=== PATIENT | female | born 1965 | race American Indian/Alaskan Native ===

== ENCOUNTER 2016-08-22 12:38 | Inpatient (IN) | payer OTHER ==
[~2016-08-22 12:38] MED LIST: MORPHINE IV PRN; NACL 0.9% IR ONE; SODIUM CHLORIDE FLUSH SYRINGE 10 ML IV PRN; VANCOMYCIN/NS 1 GM/250 ML 250 ML IV ONE
[2016-08-22] MEDS ORDERED: VERSED IV NR (14:03)
[2016-08-22] MEDS ORDERED: NACL 0.9% 1000 ML 1,000 ML IV SCH (14:03)
[2016-08-22] MEDS ORDERED: NACL 0.9% 1000 ML 1,000 ML ONE (14:05)
--- NOTE | 2016-08-22 14:09 | Anesthesia Consultation ---
Anesthesia Consult and Med Hx Date of service: 08/22/16 - Airway Anesthetic Teeth Evaluation: Good, Caps (front, upper left cap) ROM Head & Neck: Adequate Mental/Hyoid Distance: Adequate Mallampati Class: Class III Intubation Access Assessment: Probably Good - Pulmonary Exam CTA: Yes - Cardiac Exam Cardiac Exam: RRR - Pre-Operative Health Status ASA Pre-Surgery Classification: ASA2 Proposed Anesthetic Plan: General - Pulmonary Hx Smoking: Yes (3 years, quit 11/2015) - Cardiovascular System Hx Hypertension: No - Central Nervous System Hx Neuromuscular Disorder: No Hx Psychiatric Problems: No - Gastrointestinal Hx Gastroesophageal Reflux Disease: Yes (uncontrolled) - Endocrine Hx Insulin Dependent Diabetes: No (non-diabetic status post weight loss) - Hematic Hx Anemia: No Hx Sickle Cell Disease: No - Other Systems Hx Alcohol Use: No Hx Substance Use: No Hx Cancer: No Hx Obesity: No
--- NOTE | 2016-08-22 14:10 | Anesthesia Day of Surgery ---
Anesthesia Day of Surgery - Day of Surgery Patient Examined: Yes Patient H&P Reviewed: Yes Patient is NPO: Yes
[2016-08-22] MEDS ORDERED: VANCOMYCIN/NS 1 GM/250 ML 250 ML IV NR (15:00)
[2016-08-22] MEDS ORDERED: PEPCID IV NR (15:00)
[2016-08-22 15:15] LABS: Hematocrit 37.3 % (30.3-42.9); Hemoglobin 12.3 gm/dl (10.1-14.3); Mean Corpuscular HGB Conc 33 % (30-34); Mean Corpuscular Hemoglobin 27 pg (28-32); Mean Corpuscular Volume 83 fl (79-97); Platelet Count 253 K/mm3 (140-440); Red Blood Count 4.52 M/mm3 (3.65-5.03); Red Cell Distribution Width 12.8 % (13.2-15.2); White Blood Count 15.3 K/mm3 (4.5-11.0)
[2016-08-22 15:35] LABS: Blood Urea Nitrogen 5 mg/dL (7-17); Calcium 8.7 mg/dL (8.4-10.2); Carbon Dioxide 21 mmol/L (22-30); Glucose 265 mg/dL (65-100); Sodium 132 mmol/L (137-145)
[2016-08-22 15:38] LABS: Anion Gap 21 mmol/L
[2016-08-22 16:36] LABS: Blastocytes % (Manual) 0 %; Eosinophils % (Manual) 0 % (0.0-4.3)
[2016-08-22 16:37] LABS: Diff Status Complete; Large Platelets 1+; Platelet Estimate Consistent w Auto; RBC Morphology Normal
[2016-08-22] MEDS ORDERED: XYLOCAINE MPF 2% ONE (16:43)
[2016-08-22] MEDS ORDERED: DIPRIVAN 10 MG/ML IV ONE (16:43)
[2016-08-22] MEDS ORDERED: DILAUDID ONE (16:43)
[2016-08-22] MEDS ORDERED: NEOSPORIN GU IR ONE ×2 (16:51→17:11)
[2016-08-22] MEDS ORDERED: ROBINUL ONE (17:06)
[2016-08-22] MEDS ORDERED: ZOFRAN ONE (17:06)
[2016-08-22] MEDS ORDERED: THERMAZENE 50 GRAM TP ONE (17:11)
[2016-08-22] MEDS ORDERED: NACL 0.9% IR ONE ×2 (17:11)
[2016-08-22] MEDS ORDERED: SUBLIMAZE IV PRN (18:08)
[2016-08-22] MEDS ORDERED: PERCOCET 5/325 PO PRN (18:09)
--- NOTE | 2016-08-22 18:28 | Short Stay Summary ---
Short Stay Documentation Date of service: 08/22/16 - History H&P: obtained from office - Allergies and Medications Current Medications: Allergies No Known Allergies Allergy (Unverified 01/19/16 08:02) Home Medications Medication Instructions Recorded Confirmed Last Taken Type Cephalexin [Keflex] 500 mg PO BID #20 capsule 08/10/16 Unknown Rx Ibuprofen [Motrin 600 MG tab] 600 mg PO Q8H PRN #30 tablet 08/10/16 Unknown Rx Sulfamethoxazole/Trimethoprim 1 each PO BID #20 tablet 08/10/16 Unknown Rx [Bactrim DS TAB] Active Medications Fentanyl (Sublimaze) 50 mcg IV Q8HR PRN PRN Reason: Pain Lactated Ringer's (Lactated Ringers) 1,000 mls @ 125 mls/hr IV DIRECT BREN Sodium Chloride (Nacl 0.9% 1000 Ml) 1,000 mls @ 75 mls/hr IV DIRECT BREN Last Admin: 08/22/16 14:21 Dose: 75 mls/hr Vancomycin HCl (Vancomycin/Ns 1 Gm/250 Ml) 250 mls @ 167 mls/hr IV PREOP NR PRN Reason: Protocol Stop: 08/22/16 23:59 Last Admin: 08/22/16 16:05 Dose: 167 mls/hr Insulin Human Isoph/Insulin Regular (Novolin 70/30) 0 unit SUB-Q BIDDIAB BREN PRN Reason: Protocol Metronidazole (Flagyl) 500 mg PO Q8HR BREN Midazolam HCl (Versed) 2 mg IV PREOP NR Stop: 08/22/16 23:59 Last Admin: 08/22/16 16:11 Dose: 2 mg Morphine Sulfate (Morphine) 2 mg IV Q4H PRN PRN Reason: Pain, Moderate (4-6) Ondansetron HCl (Zofran) 4 mg IV Q8H PRN PRN Reason: N/V unrelieved by Reglan Oxycodone/Acetaminophen (Percocet 5/325) 1 tab PO Q4H PRN PRN Reason: Pain, Moderate (4-6) Silver Sulfadiazine (Thermazene 50 Gram) 1 applic TP BID BREN Sodium Chloride (Sodium Chloride Flush Syringe 10 Ml) 10 ml IV PRN PRN PRN Reason: LINE FLUSH Vancomycin HCl (Vancomycin Pharmacy To Dose) 1 each IV PKCONSULT BREN PRN Reason: Protocol - Brief post op/procedure progress note Date of procedure: 08/22/16 Pre-op diagnosis: Right breast abscess with necrotizing fascitis Post-op diagnosis: same Procedure: Right breast incision and drainage with debridement of necrotizing fascitis Anesthesia: GETA Findings: Right breast necrotizing fascitis from the 3:00 to 6:00 positions of 15x12 cm Surgeon: JERMAINE WASHINGTON Estimated blood loss: minimal Pathology: list (right breast incision and drainage) Specimen disposition: to lab Condition: stable - Disposition Condition at discharge: Good Disposition: DC/TX SHORT-TERM GEN HOSP INPT Short Stay Discharge Plan Activity: no restrictions Diet: diabetic Wound: other (wound dressing changes) Follow up with: HALEIGH MORALES MD [Primary Care Provider] - 7 Days JERMAINE WASHINGTON MD [Staff Physician] - 7 Days
[2016-08-22] MEDS ORDERED: DILAUDID IV PRN (18:30)
[2016-08-22] MEDS ORDERED: NORCO 5/325 PO PRN (18:30)
--- NOTE | 2016-08-22 18:34 | Post Anesthesia Evaluation ---
- Post Anesthesia Evaluation Patient Participated: Yes Airway Patent: Yes Stable Respiratory Function: Yes Temp > 96.8F: Yes Pain Manageable: Yes Adequeate Hydration: Yes Anesthesia Complications: No Block Receding Appropriately: Not Applicable
--- NOTE | 2016-08-22 18:42 | Operative Report ---
Operative Report Operative Report: Date of procedure: 08/22/2016 Pre-operative diagnosis: Right breast necrotizing fascitis Post-operative diagnosis: Same Procedure name(s): Right breast incision, drainage and debridement of necrotizing fascitis with partial breast resection Surgeon: Shala Huff M.D. Anesthesia: Gen. Findings: Right breast necrotizing fasciitis from the 3 to 6 o'clock position incompetents seen 15 x 12 cm, 350 mL of pus drained with bilateral liters of Pulsavac with anabiotic irrigant performed. Breast debridement to healthy tissue. Complications: None Drains: None Disposition: PACU in good condition Indications for operative procedure: This is a 50-year-old -[place] lady seen today in my office for evaluation of extreme right breast pain. Physical exam with findings concerning for a right breast necrotizing fasciitis from the 3 to 6 o'clock position of at least 15 cm. Recommendations were to proceed with surgery for the above procedure and patient wished to proceed. Procedure in detail: Patient was taken to the operating room and was laid supine. Gen. anesthesia was administered. Timeout was performed. A right breast was prepped and draped in the normal sterile perative fashion. Ultrasound was used to identify possible fluid collection that was noted from the 3 to 6 o'clock positions. Syringe with 18-gauge needle was inserted into the breast at the 3 o'clock position 1 cm from the nipple with aspiration of thick purulence noted of 5 mL. A skin incision was then made with a 15 blade knife at the needle stick insertion site with 350 mL of pus drained. The area of necrotic and tissue from the 3 to 6 o'clock positions was debrided to healthy tissue-necrotic skin and tissue was noted with foul odor. The breast cavity was then irrigated with 500 mL of sterile saline with anabiotic solution. The patient tolerated surgery very well. The wound was appropriately packed and dressed. She was awakened from anesthesia and transported to PACU in good condition.
[2016-08-22] MEDS ORDERED: VANCOMYCIN PHARMACY TO DOSE IV SCH (19:00)
[2016-08-22] MEDS: LACTATED RINGERS 1,000 ML IV SCH (20:20)
[2016-08-22] MEDS: VANCOMYCIN VIAL 1,250 MG in NACL 0.9% 250ML 250 ML IV SCH (21:30)
[2016-08-22] MEDS: FLAGYL PO SCH (21:31)
[2016-08-22] MEDS ORDERED: THERMAZENE 50 GRAM TP SCH (22:00)
[2016-08-23] MEDS: FLAGYL PO SCH ×2 (05:55→21:55)
[2016-08-23] MEDS: LACTATED RINGERS 1,000 ML IV SCH (05:55)
[2016-08-23 06:44] LABS: Basophils % (Auto) 0.2 % (0.0-1.8); Eosinophils % (Auto) 0.8 % (0.0-4.3); Hemoglobin 10.8 gm/dl (10.1-14.3); Mean Corpuscular HGB Conc 34 % (30-34); Mean Corpuscular Hemoglobin 28 pg (28-32); Mean Corpuscular Volume 83 fl (79-97); Platelet Count 223 K/mm3 (140-440); Red Blood Count 3.84 M/mm3 (3.65-5.03); Red Cell Distribution Width 12.8 % (13.2-15.2); White Blood Count 12.4 K/mm3 (4.5-11.0)
[2016-08-23 06:54] LABS: BUN/Creatinine Ratio 6.92; Calcium 8.4 mg/dL (8.4-10.2); Chloride 97.3 mmol/L (98-107); Potassium 3.8 mmol/L (3.6-5.0)
[2016-08-23] MEDS: VANCOMYCIN VIAL 1,250 MG in NACL 0.9% 250ML 250 ML IV SCH ×2 (09:15→21:09)
[2016-08-23] MEDS: PERCOCET 5/325 PO PRN ×2 (11:35→18:05)
--- NOTE | 2016-08-23 14:45 | Progress Note ---
Assessment and Plan This is a 50 year old lady admitted for right breast necrotizing fascitis POD # 1 right breast incision, drainage and debridement. No acute events overnight. Pain well controlled. Afebrile. 1. Neuro-awake, alert and oriented with no deficits. Pain in good control and will continue with prn pain medication. 2. Resp-incentive spirometry at bedside and patient instructed to actively use. 3. Cardiac-hemodynamically stable. No acute issues. 4. GI-resume diabetic diet. Will consult nutrition as well. 5. ID-patient septic with current cultures from OR with gram negative and gram positive bacteria and will continue with Vancomycin-dosed by pharmacy and po flagyl and will make changes with final culture results. Patient remains afebrile and WBC improved and down from 15 to 12 today and will repeat in the morning to monitor her sepsis. Right breast wound with no further signs of necrosis and dressing changed today. Will change again later today-wet to dry dressing changes. Dr. Villanueva consulted yesterday who will see patient next week- she will need plastics closure. 6. Renal-increase Creatine to 1.5 today and normal yesterday-acute kidney injury to vasomotor injury, will continue with IVFs and repeat metabolic panel in the morning. Will also follow-up with Dr. Watts's recommendations. Started SC heparin today for DVT prophylaxis. 7. Endocrine-patient a known diabetic with poor control and currently not being treated for her diabetes. Started insulin at admission and consulted hospitalist for recommendations for control. Will follow-up with Dr. Watts's recommendations. 8. Social work-consulted last night for home health. Subjective Date of service: 08/23/16 Principal diagnosis: Right breast necrotizing fascitis Interval history: This is a 50 year old lady who was admitted yesterday for right breast necrotizing fascititis of the right lower inner quadrant. She underwent incision , drainage and debridement on August 22, 2016. Objective - Constitutional Vitals: Vital Signs - 12hr 08/23/16 08/23/16 08/23/16 04:00 08:00 11:35 Temperature 98.8 F 98.8 F Pulse Rate [ 86 86 Left] Respiratory 20 18 18 Rate Blood Pressure 142/73 117/71 [Left Arm] 08/23/16 12:00 Temperature 98.8 F Pulse Rate [ 87 Left] Respiratory 18 Rate Blood Pressure 106/58 [Left Arm] General appearance: Present: no acute distress - EENT Eyes: PERRL, EOM intact ENT: hearing intact, clear oral mucosa, dentition normal Ears: bilateral: normal - Neck Neck: supple, normal ROM - Respiratory Respiratory effort: normal Respiratory: bilateral: CTA - Breasts Breasts: other (right breast-dressing removed with area of tissue with no further signs of necrosis, no pus present, no odor, minimal drainage, tissue perfused) - Cardiovascular Rhythm: regular Extremities: no ischemia, pulses intact, pulses symmetrical, No edema, normal temperature, normal color, Full ROM - Gastrointestinal General gastrointestinal: Present: soft, non-tender, non-distended Rectal Exam: deferred - Genitourinary Female genitourinary: deferred - Integumentary Integumentary: clear, warm, dry - Musculoskeletal Musculoskeletal: strength equal bilaterally - Neurologic Neurologic: CNII-XII intact, moves all extremities - Psychiatric Psychiatric: appropriate mood/affect, intact judgment & insight, memory intact, cooperative - Labs CBC & Chem 7: 08/23/16 06:00 08/23/16 06:00 Labs: Abnormal lab results 08/22/16 08/22/16 08/22/16 Range/Units 14:50 14:50 18:16 WBC 15.3 H (4.5-11.0) K/mm3 MCH 27 L (28-32) pg RDW 12.8 L (13.2-15.2) % [place] % (Auto) (0.0-7.3) % [place] # (0.0-0.8) K/mm3 Seg Neutrophils % (40.0-70.0) % Seg Neuts % (Manual) 76.0 H (40.0-70.0) % Lymphocytes % (Manual) 13.0 L (13.4-35.0) % Monocytes % (Manual) 9.0 H (0.0-7.3) % Seg Neutrophils # (1.8-7.7) K/mm3 Seg Neutrophils # Man 11.6 H (1.8-7.7) K/mm3 Monocytes # (Manual) 1.4 H (0.0-0.8) K/mm3 Basophils # (Manual) 0.2 H (0.0-0.1) K/mm3 Sodium 132 L (137-145) mmol/L Chloride 94.0 L (98-107) mmol/L Carbon Dioxide 21 L (22-30) mmol/L BUN 5 L (7-17) mg/dL Creatinine 0.5 L (0.7-1.2) mg/dL Glucose 265 H (65-100) mg/dL POC Glucose 264 H (70-105) 08/23/16 08/23/16 08/23/16 Range/Units 06:00 06:00 08:36 WBC 12.4 H (4.5-11.0) K/mm3 MCH (28-32) pg RDW 12.8 L (13.2-15.2) % [place] % (Auto) 10.8 H (0.0-7.3) % [place] # 1.3 H (0.0-0.8) K/mm3 Seg Neutrophils % 70.7 H (40.0-70.0) % Seg Neuts % (Manual) (40.0-70.0) % Lymphocytes % (Manual) (13.4-35.0) % Monocytes % (Manual) (0.0-7.3) % Seg Neutrophils # 8.7 H (1.8-7.7) K/mm3 Seg Neutrophils # Man (1.8-7.7) K/mm3 Monocytes # (Manual) (0.0-0.8) K/mm3 Basophils # (Manual) (0.0-0.1) K/mm3 Sodium 135 L (137-145) mmol/L Chloride 97.3 L (98-107) mmol/L Carbon Dioxide (22-30) mmol/L BUN (7-17) mg/dL Creatinine 1.3 H D (0.7-1.2) mg/dL Glucose 315 H (65-100) mg/dL POC Glucose 319 H (70-105) 08/23/16 Range/Units 11:51 WBC (4.5-11.0) K/mm3 MCH (28-32) pg RDW (13.2-15.2) % [place] % (Auto) (0.0-7.3) % [place] # (0.0-0.8) K/mm3 Seg Neutrophils % (40.0-70.0) % Seg Neuts % (Manual) (40.0-70.0) % Lymphocytes % (Manual) (13.4-35.0) % Monocytes % (Manual) (0.0-7.3) % Seg Neutrophils # (1.8-7.7) K/mm3 Seg Neutrophils # Man (1.8-7.7) K/mm3 Monocytes # (Manual) (0.0-0.8) K/mm3 Basophils # (Manual) (0.0-0.1) K/mm3 Sodium (137-145) mmol/L Chloride (98-107) mmol/L Carbon Dioxide (22-30) mmol/L BUN (7-17) mg/dL Creatinine (0.7-1.2) mg/dL Glucose (65-100) mg/dL POC Glucose 297 H (70-105)
[2016-08-23] MEDS: NACL 0.9% 1000 ML 1,000 ML IV SCH (16:18)
[2016-08-23] MEDS ORDERED: HEPARIN SUB-Q SCH (22:00)
--- NOTE | 2016-08-24 | Consultation ---
History of Present Illness - Reason for Consult Consult date: 08/23/16 Medical management Requesting physician: JERMAINE HUFF - History of Present Illness Right breast necrotizing fascitis S/p Right breast incision, drainage and debridement of necrotizing fascitis with partial breast resection. Right breast necrotizing fasciitis from the 3 to 6 o'clock position seen 15 x 12 cm, 350 mL of pus drained with bilateral liters of Pulsavac with anabiotic irrigant performed. Breast debridement to healthy tissue on Aug by Dr Huff. Patient has history of T2DM and stopped metformin in 2006 because she lost weight and it was deemed that she would not need any meds(hypoglycemics) at that point of time. Blood glucose levels are ranging from 200 to 350. . Past History Past Medical History: diabetes Past Surgical History: Other (Rt breast necrotizing fasciitis debridement) Social history: lives with family Medications and Allergies Allergies Allergy/AdvReac Type Severity Reaction Status Date / Time No Known Allergies Allergy Unverified 01/19/16 08:02 Home Medications Medication Instructions Recorded Confirmed Last Taken Type Cephalexin [Keflex] 500 mg PO BID #20 capsule 08/10/16 Unknown Rx Ibuprofen [Motrin 600 MG tab] 600 mg PO Q8H PRN #30 tablet 08/10/16 Unknown Rx Sulfamethoxazole/Trimethoprim 1 each PO BID #20 tablet 08/10/16 Unknown Rx [Bactrim DS TAB] Active Meds: Active Medications Fentanyl (Sublimaze) 50 mcg IV Q8HR PRN PRN Reason: Pain Last Admin: 08/23/16 14:00 Dose: 50 mcg Heparin Sodium (Porcine) (Heparin) 5,000 unit SUB-Q Q12HR [facility] Last Admin: 08/23/16 21:57 Dose: 5,000 unit Hydromorphone HCl (Dilaudid) 0.5 mg IV Q10MIN PRN PRN Reason: Pain , Severe (7-10) Stop: 08/25/16 18:31 Sodium Chloride (Nacl 0.9% 1000 Ml) 1,000 mls @ 75 mls/hr IV DIRECT [facility] Last Admin: 08/22/16 14:21 Dose: 75 mls/hr Vancomycin HCl 1,250 mg/ (Sodium Chloride) 250 mls @ 166.667 mls/hr IV Q12H [facility] Last Admin: 08/23/16 21:09 Dose: 166.667 mls/hr Sodium Chloride (Nacl 0.9% 1000 Ml) 1,000 mls @ 100 mls/hr IV DIRECT [facility] Last Admin: 08/23/16 16:18 Dose: 100 mls/hr Insulin Human Regular (Novolin R) 0 units SUB-Q ACHS BREN PRN Reason: Protocol Last Admin: 08/23/16 23:06 Dose: 6 units Metronidazole (Flagyl) 500 mg PO Q8HR [facility] Last Admin: 08/23/16 21:55 Dose: 500 mg Morphine Sulfate (Morphine) 2 mg IV Q4H PRN PRN Reason: Pain, Moderate (4-6) Last Admin: 08/23/16 04:46 Dose: 2 mg Ondansetron HCl (Zofran) 4 mg IV Q8H PRN PRN Reason: N/V unrelieved by Reglan Oxycodone/Acetaminophen (Percocet 5/325) 2 tab PO Q6H PRN PRN Reason: Pain, Moderate (4-6) Last Admin: 08/23/16 18:05 Dose: 1 tab Sodium Chloride (Sodium Chloride Flush Syringe 10 Ml) 10 ml IV PRN PRN PRN Reason: LINE FLUSH Vancomycin HCl (Vancomycin Pharmacy To Dose) 1 each IV PKCONSULT BREN PRN Reason: Protocol Review of Systems All systems: negative Breasts: other (s/p Rt breast debridemnt) Exam - Constitutional Vitals: Temp Pulse Resp BP Pulse Ox 98.3 F 89 18 112/66 96 08/23/16 16:00 08/23/16 16:00 08/23/16 18:05 08/23/16 16:00 08/22/16 19:30 General appearance: Present: no acute distress, well-nourished - EENT Eyes: Present: PERRL ENT: hearing intact, clear oral mucosa - Neck Neck: Present: supple, normal ROM - Respiratory Respiratory effort: normal Respiratory: bilateral: CTA - Cardiovascular Heart Sounds: Present: S1 & S2. Absent: rub, click - Extremities Extremities: pulses symmetrical, No edema Peripheral Pulses: within normal limits - Abdominal General gastrointestinal: Present: soft, non-tender, non-distended, normal bowel sounds Female genitourinary: Present: normal - Integumentary Integumentary: Present: clear, warm, dry - Musculoskeletal Musculoskeletal: gait normal, strength equal bilaterally - Psychiatric Psychiatric: appropriate mood/affect, intact judgment & insight - Neurologic Neurologic: CNII-XII intact, moves all extremities Results - Labs CBC & Chem 7: 08/23/16 06:00 08/23/16 06:00 Labs: Abnormal lab results 08/23/16 08/23/16 08/23/16 Range/Units 06:00 06:00 08:36 WBC 12.4 H (4.5-11.0) K/mm3 RDW 12.8 L (13.2-15.2) % [place] % (Auto) 10.8 H (0.0-7.3) % [place] # 1.3 H (0.0-0.8) K/mm3 Seg Neutrophils % 70.7 H (40.0-70.0) % Seg Neutrophils # 8.7 H (1.8-7.7) K/mm3 Sodium 135 L (137-145) mmol/L Chloride 97.3 L (98-107) mmol/L Creatinine 1.3 H D (0.7-1.2) mg/dL Glucose 315 H (65-100) mg/dL POC Glucose 319 H (70-105) 08/23/16 08/23/16 08/23/16 Range/Units 11:51 16:25 21:25 WBC (4.5-11.0) K/mm3 RDW (13.2-15.2) % [place] % (Auto) (0.0-7.3) % [place] # (0.0-0.8) K/mm3 Seg Neutrophils % (40.0-70.0) % Seg Neutrophils # (1.8-7.7) K/mm3 Sodium (137-145) mmol/L Chloride (98-107) mmol/L Creatinine (0.7-1.2) mg/dL Glucose (65-100) mg/dL POC Glucose 297 H 260 H 322 H (70-105) 08/23/16 Range/Units 22:52 WBC (4.5-11.0) K/mm3 RDW (13.2-15.2) % [place] % (Auto) (0.0-7.3) % [place] # (0.0-0.8) K/mm3 Seg Neutrophils % (40.0-70.0) % Seg Neutrophils # (1.8-7.7) K/mm3 Sodium (137-145) mmol/L Chloride (98-107) mmol/L Creatinine (0.7-1.2) mg/dL Glucose (65-100) mg/dL POC Glucose 281 H (70-105) Assessment and Plan - Patient Problems (1) Diabetes mellitus Current Visit: Yes Status: Chronic Qualifiers: Diabetes mellitus type: type 2 Laterality: right Plan to address problem: Patient needs to be on basal bolus insulin regimen now on and after discharge and needs tighter glucose control and follow up with pcp/dramatic critic on a regular basis.Discussed care with patient. Will start her on lantus 20 units qhs and 6 units of novalog before each meal and adjust dosage depending on her blood glucose levels. Check A1c Dietitian consult requested (2) Necrotizing fasciitis Current Visit: Yes Status: Acute Plan to address problem: S/p debridement Cont abx
[2016-08-24] MEDS: PERCOCET 5/325 PO PRN ×2 (00:02→14:51)
[2016-08-24] MEDS: NACL 0.9% 1000 ML 1,000 ML IV SCH ×2 (03:30→15:02)
[2016-08-24 06:25] LABS: Hemoglobin 10.9 gm/dl (10.1-14.3); Mean Corpuscular HGB Conc 34 % (30-34); Mean Corpuscular Hemoglobin 28 pg (28-32); Mean Corpuscular Volume 83 fl (79-97); Platelet Count 254 K/mm3 (140-440); Red Blood Count 3.87 M/mm3 (3.65-5.03); Red Cell Distribution Width 12.8 % (13.2-15.2); White Blood Count 9.3 K/mm3 (4.5-11.0)
[2016-08-24 06:40] LABS: BUN/Creatinine Ratio 7.33; Calcium 8.2 mg/dL (8.4-10.2); Potassium 3.7 mmol/L (3.6-5.0)
[2016-08-24 06:42] LABS: Albumin 2.2 g/dL (3.9-5); Albumin/Globulin Ratio 0.6 %; BUN/Creatinine Ratio 7.33; Bilirubin,Total 0.2 mg/dL (0.1-1.2); Calcium 8.2 mg/dL (8.4-10.2); Chloride 100.3 mmol/L (98-107); Potassium 3.8 mmol/L (3.6-5.0)
[2016-08-24] MEDS: FLAGYL PO SCH ×3 (07:10→22:02)
[2016-08-24 07:57] LABS: Basophils % (Manual) 0 % (0.0-1.8); Blastocytes % (Manual) 0 %; Eosinophils % (Manual) 0 % (0.0-4.3)
[2016-08-24 07:58] LABS: Anisocytosis Few
[2016-08-24 07:59] LABS: Diff Status Complete
[2016-08-24] MEDS: NOVOLOG SUB-Q SCH ×5 (08:20→22:18)
[2016-08-24] MEDS: VANCOMYCIN VIAL 1,250 MG in NACL 0.9% 250ML 250 ML IV SCH ×2 (09:30→20:25)
--- NOTE | 2016-08-24 10:37 | Progress Note ---
Assessment and Plan - Patient Problems (1) Diabetes mellitus Current Visit: Yes Status: Chronic Qualifiers: Diabetes mellitus type: type 2 Laterality: right Plan to address problem: Patient needs to be on basal bolus insulin regimen now on and after discharge and needs tighter glucose control and follow up with pcp/lead android developer on a regular basis.Discussed care with patient. Will start her on lantus 20 units qhs and 6 units of novalog before each meal and adjust dosage depending on her blood glucose levels. Check A1c Dietitian consult requested (2) Necrotizing fasciitis Current Visit: Yes Status: Acute Plan to address problem: S/p debridement Cont abx (3) Malnutrition Current Visit: Yes Status: Acute Plan to address problem: Severe-Albumin 2.2 Requested Dietitian consult (4) DVT prophylaxis Current Visit: Yes Status: Acute Plan to address problem: On Lovenox 40 mg SQ Subjective Date of service: 08/24/16 Principal diagnosis: Right breast necrotizing fascitis Interval history: Doing better Objective - Constitutional Vitals: Vital Signs - 12hr 08/24/16 08/24/16 08/24/16 00:00 04:00 07:30 Temperature 98.2 F 98.4 F 97.6 F Pulse Rate [ 78 73 71 Left] Respiratory 20 18 18 Rate Blood Pressure 116/73 104/66 117/75 [Left Arm] General appearance: Present: no acute distress, well-nourished - EENT Eyes: PERRL, EOM intact ENT: hearing intact, clear oral mucosa Ears: bilateral: normal - Neck Neck: supple, normal ROM - Respiratory Respiratory effort: normal Respiratory: bilateral: CTA - Breasts Breasts: normal - Cardiovascular Rhythm: regular Heart Sounds: Present: S1 & S2. Absent: gallop, rub Extremities: pulses intact, No edema, normal color, Full ROM - Gastrointestinal General gastrointestinal: Present: soft, non-tender, non-distended, normal bowel sounds - Genitourinary Female genitourinary: normal - Integumentary Integumentary: clear, warm, dry - Musculoskeletal Musculoskeletal: 1, strength equal bilaterally - Neurologic Neurologic: moves all extremities - Psychiatric Psychiatric: memory intact, appropriate mood/affect, intact judgment & insight - Labs CBC & Chem 7: 08/24/16 06:09 08/24/16 06:09 Labs: Abnormal lab results 08/23/16 08/23/16 08/23/16 Range/Units 11:51 16:25 21:25 RDW (13.2-15.2) % Sodium (137-145) mmol/L Creatinine (0.7-1.2) mg/dL Glucose (65-100) mg/dL POC Glucose 297 H 260 H 322 H (70-105) Calcium (8.4-10.2) mg/dL Total Protein (6.3-8.2) g/dL Albumin (3.9-5) g/dL 08/23/16 08/24/16 08/24/16 Range/Units 22:52 06:09 06:09 RDW 12.8 L (13.2-15.2) % Sodium 136 L (137-145) mmol/L Creatinine 1.5 H (0.7-1.2) mg/dL Glucose 157 H (65-100) mg/dL POC Glucose 281 H (70-105) Calcium 8.2 L (8.4-10.2) mg/dL Total Protein (6.3-8.2) g/dL Albumin (3.9-5) g/dL 08/24/16 08/24/16 Range/Units 06:09 07:38 RDW (13.2-15.2) % Sodium (137-145) mmol/L Creatinine 1.5 H (0.7-1.2) mg/dL Glucose 160 H (65-100) mg/dL POC Glucose 203 H (70-105) Calcium 8.2 L (8.4-10.2) mg/dL Total Protein 6.0 L (6.3-8.2) g/dL Albumin 2.2 L (3.9-5) g/dL
--- NOTE | 2016-08-24 11:57 | Progress Note ---
Assessment and Plan This is a 50 year old lady admitted for right breast necrotizing fascitis POD # 2 right breast incision, drainage and debridement. No acute events overnight. Pain well controlled. Afebrile. 1. Neuro-awake, alert and oriented with no deficits. Pain in good control and will continue with prn pain medication. 2. Resp-incentive spirometry at bedside and patient instructed to actively use. 3. Cardiac-hemodynamically stable. No acute issues. 4. GI-diabetic diet. Nutrition consulted. 5. ID-patient admitted with sepsis with current cultures from OR with gram negative and gram positive bacteria and will continue with Vancomycin-dosed by pharmacy and po flagyl and will make changes with final culture results. Patient remains afebrile and WBC normalized today. Right breast wound with no further signs of necrosis and dressing changed today. Will change again later today-wet to dry dressing changes. Dr. Villanueva consulted who will see patient next week-she will need plastics closure. 6. Renal-increase Creatine from admisstion and remains at 1.5 today -acute kidney injury to vasomotor injury, will continue with IVFs and repeat metabolic panel in the morning. Will also follow-up with Dr. Watts's recommendations. SC heparin started on Friday for DVT prophylaxis. 7. Endocrine-patient a known diabetic with poor control and currently not being treated for her diabetes as an outpatient. Started insulin at admission and consulted hospitalist for recommendations for control to changes made yesterday with improved control. Will follow-up with Dr. Watts's recommendations. 8. Social work-consulted for home health and arranged for discharge. Subjective Date of service: 08/24/16 Principal diagnosis: Right breast necrotizing fascitis Interval history: This is a 50 year old lady who was admitted yesterday for right breast necrotizing fascititis of the right lower inner quadrant. She underwent incision , drainage and debridement on August 22, 2016. Objective - Constitutional Vitals: Vital Signs - 12hr 08/24/16 08/24/16 08/24/16 00:00 04:00 07:30 Temperature 98.2 F 98.4 F 97.6 F Pulse Rate [ 78 73 71 Left] Respiratory 20 18 18 Rate Blood Pressure 116/73 104/66 117/75 [Left Arm] General appearance: Present: no acute distress - EENT Eyes: PERRL, EOM intact ENT: hearing intact, clear oral mucosa, dentition normal Ears: bilateral: normal - Neck Neck: supple, normal ROM - Respiratory Respiratory effort: normal Respiratory: bilateral: CTA - Breasts Breasts: other (right breast wound-no further signs of infection, skin wound edges with slight erythema and decrease induration-improvement, breast cavity wound well perfused, breast tissues moist; wound redredressed, no necrosis present) Extremities: no ischemia, pulses intact, pulses symmetrical, No edema, normal temperature, normal color, Full ROM - Gastrointestinal General gastrointestinal: Present: soft, non-tender, non-distended Rectal Exam: deferred - Genitourinary Female genitourinary: deferred - Integumentary Integumentary: clear, warm, dry - Musculoskeletal Musculoskeletal: strength equal bilaterally - Neurologic Neurologic: CNII-XII intact, moves all extremities, gait normal - Psychiatric Psychiatric: appropriate mood/affect, intact judgment & insight, memory intact, cooperative - Labs CBC & Chem 7: 08/24/16 06:09 08/24/16 06:09 Labs: Abnormal lab results 08/23/16 08/23/16 08/23/16 Range/Units 11:51 16:25 21:25 RDW (13.2-15.2) % Sodium (137-145) mmol/L Creatinine (0.7-1.2) mg/dL Glucose (65-100) mg/dL POC Glucose 297 H 260 H 322 H (70-105) Calcium (8.4-10.2) mg/dL Total Protein (6.3-8.2) g/dL Albumin (3.9-5) g/dL 08/23/16 08/24/16 08/24/16 Range/Units 22:52 06:09 06:09 RDW 12.8 L (13.2-15.2) % Sodium 136 L (137-145) mmol/L Creatinine 1.5 H (0.7-1.2) mg/dL Glucose 157 H (65-100) mg/dL POC Glucose 281 H (70-105) Calcium 8.2 L (8.4-10.2) mg/dL Total Protein (6.3-8.2) g/dL Albumin (3.9-5) g/dL 08/24/16 08/24/16 Range/Units 06:09 07:38 RDW (13.2-15.2) % Sodium (137-145) mmol/L Creatinine 1.5 H (0.7-1.2) mg/dL Glucose 160 H (65-100) mg/dL POC Glucose 203 H (70-105) Calcium 8.2 L (8.4-10.2) mg/dL Total Protein 6.0 L (6.3-8.2) g/dL Albumin 2.2 L (3.9-5) g/dL
[2016-08-24] MEDS: ZOSYN/NS 4.5GM/100ML 100 ML IV SCH ×2 (14:53→22:00)
[2016-08-24] MEDS ORDERED: LOVENOX SUB-Q SCH (22:00)
[2016-08-24] MEDS: LEVEMIR SUB-Q SCH (22:02)
[2016-08-25] MEDS: FLAGYL PO SCH ×3 (05:57→22:15)
[2016-08-25] MEDS: ZOSYN/NS 4.5GM/100ML 100 ML IV SCH (06:00)
[2016-08-25 07:52] LABS: BUN/Creatinine Ratio 5.88; Calcium 8.2 mg/dL (8.4-10.2); Chloride 104.7 mmol/L (98-107); Potassium 3.7 mmol/L (3.6-5.0)
--- NOTE | 2016-08-25 08:27 | Progress Note ---
Assessment and Plan This is a 50 year old lady admitted for right breast necrotizing fascitis POD # 3 right breast incision, drainage and debridement. No acute events overnight. Pain well controlled. Afebrile. 1. Neuro-awake, alert and oriented with no deficits. Pain in good control and will continue with prn pain medication. 2. Resp-incentive spirometry at bedside and patient instructed to actively use. 3. Cardiac-hemodynamically stable. No acute issues. 4. GI-diabetic diet. Nutrition consulted. 5. ID-patient admitted with sepsis with current cultures from OR with gram negative and gram positive bacteria and will continue with Vancomycin-dosed by pharmacy and po flagyl and will make changes with final culture results. Spoke with pharmacy today and will order vancomycin trough given increase in creatinine to 1.7 today from 1.5. Preliminary cultures positive for enterococcus but sensitivities won't be available until tomorrow and will then switch to po antibiotics. Dr. Watts started patient on Zosyn yesterday and I discontinued today-no further signs of infection with wound stable and worsening renal function. Patient remains afebrile and WBC normalized on Friday. Right breast wound with no further signs of necrosis and dressing changed today. Will change again later today-wet to dry dressing changes. Dr. Villanueva consulted who will see patient next week-she will need plastics closure. 6. Renal-increase Creatinine from admission and yesterday of 1.5 to 1.7 today - acute kidney injury to vasomotor injury due to sepsis at admission. Worsening renal function today could be secondary to medications. She was started on heparin on Friday for DVT prophylaxsis and not Lovenox given Lovenox is renal toxic. Dr. Watts swithced to Lovenox yesterday that was discontinuned today and Heparin SQ restarted. Consulted nephrology Dr. Connolly today given rise of Cr to 1.7 who agrees with my changes today. Will also order urine eosinophils, sodium and creatinine to determine if prerenal-no signs of obstruction. Will continue with IVFs and repeat metabolic panel in the morning. Will also order bladder scan to ensure patient is not retaining urine (I personally reviewed scan with findings of mininal residual urine post void, will await final report). 7. Endocrine-patient a known diabetic with poor control and currently not being treated for her diabetes as an outpatient. Started insulin at admission and consulted hospitalist for recommendations for control with changes made with improved control. Will follow-up with Dr. Watts's recommendations. 8. Social work-consulted for home health and arranged for discharge. Subjective Date of service: 08/25/16 Principal diagnosis: Right breast necrotizing fascitis Interval history: This is a 50 year old lady who was admitted on 08/22/2016 for right breast necrotizing fascititis of the right lower inner quadrant. She underwent incision , drainage and debridement on August 22, 2016. Objective - Constitutional Vitals: Vital Signs - 12hr 08/25/16 08/25/16 00:00 07:25 Temperature 98.1 F 97.9 F Pulse Rate [ 76 Left] Pulse Rate [ 82 Right Brachial] Respiratory 20 18 Rate Blood Pressure 135/71 145/84 [Right Arm] General appearance: Present: no acute distress - EENT Eyes: PERRL, EOM intact ENT: hearing intact, clear oral mucosa, dentition normal Ears: bilateral: normal - Neck Neck: supple, normal ROM - Respiratory Respiratory effort: normal Respiratory: bilateral: CTA - Breasts Breasts: other (R[place] breast wound-no signs of further infection, no necrosis, healing nicely, tissue perfused; wound cavity 3-6:00 position 15 cm defect) - Cardiovascular Rhythm: regular Extremities: no ischemia, pulses intact, pulses symmetrical, No edema, normal temperature, normal color, Full ROM - Gastrointestinal General gastrointestinal: Present: soft, non-tender, non-distended Rectal Exam: deferred - Genitourinary Female genitourinary: deferred - Integumentary Integumentary: clear, warm, dry - Musculoskeletal Musculoskeletal: strength equal bilaterally - Neurologic Neurologic: CNII-XII intact, moves all extremities, gait normal - Psychiatric Psychiatric: appropriate mood/affect, intact judgment & insight, memory intact, cooperative - Labs CBC & Chem 7: 08/24/16 06:09 08/25/16 07:00 Labs: Abnormal lab results 08/24/16 08/24/16 08/24/16 Range/Units 07:38 12:18 16:47 Creatinine (0.7-1.2) mg/dL Glucose (65-100) mg/dL POC Glucose 203 H 150 H 113 H (70-105) Calcium (8.4-10.2) mg/dL 08/24/16 08/25/16 Range/Units 20:46 07:00 Creatinine 1.7 H (0.7-1.2) mg/dL Glucose 149 H (65-100) mg/dL POC Glucose 143 H (70-105) Calcium 8.2 L (8.4-10.2) mg/dL
[2016-08-25] MEDS: ZOFRAN IV PRN ×2 (08:29→22:15)
[2016-08-25] MEDS: NOVOLOG SUB-Q SCH ×5 (08:30→22:19)
[2016-08-25] MEDS: HEPARIN SUB-Q SCH ×2 (10:52→21:59)
[2016-08-25] MEDS: PROTONIX PO SCH (11:05)
--- NOTE | 2016-08-25 11:58 | Progress Note ---
Assessment and Plan Assessment and plan: 1. DM continue current insulin regimen, glc at goal, will need an outpatient regimen upon dc 2. HTN Bp is acceptable 3. Left breast necrotic mass sp resection, low suspicion of local infection, 4. LIZZETTE likely prerenal Start ivfluids, if it does not improve by tomorrow, will need Renal imaging and nephrology consult History Interval history: Denies fevers, denies chills, denies polyuria polydipsia, denies headache or chest pain. Hospitalist Physical - Physical exam Narrative exam: General: Patient appears well in no distress HEENT: MMM, EOMI cardiac: S1-S2 heard lungs: clear to auscultation, Left breasts postsurgical changes, clean bandage seen abdomen: soft, nontender, nondistended bowel sounds positive extremities: no edema clubbing or cyanosis Skin: no rash or lesion Neuro: no focal deficit Psych: appropriate behavior and mood, cognition intact - Constitutional Vitals: Temp Pulse Resp BP Pulse Ox 97.9 F 76 18 145/84 96 08/25/16 07:25 08/25/16 07:25 08/25/16 07:25 08/25/16 07:25 08/22/16 19:30 General appearance: Present: no acute distress Results - Labs CBC & Chem 7: 08/24/16 06:09 08/25/16 07:00 Labs: Laboratory Last Values WBC 9.3 K/mm3 (4.5-11.0) 08/24/16 06:09 RBC 3.87 M/mm3 (3.65-5.03) 08/24/16 06:09 Hgb 10.9 gm/dl (10.1-14.3) 08/24/16 06:09 Hct 32.0 % (30.3-42.9) 08/24/16 06:09 MCV 83 fl (79-97) 08/24/16 06:09 MCH 28 pg (28-32) 08/24/16 06:09 MCHC 34 % (30-34) 08/24/16 06:09 RDW 12.8 % (13.2-15.2) L 08/24/16 06:09 Plt Count 254 K/mm3 (140-440) 08/24/16 06:09 Lymph % (Auto) 17.5 % (13.4-35.0) 08/23/16 06:00 [place] % (Auto) 10.8 % (0.0-7.3) H 08/23/16 06:00 Eos % (Auto) 0.8 % (0.0-4.3) 08/23/16 06:00 Baso % (Auto) 0.2 % (0.0-1.8) 08/23/16 06:00 Lymph # 2.2 K/mm3 (1.2-5.4) 08/23/16 06:00 [place] # 1.3 K/mm3 (0.0-0.8) H 08/23/16 06:00 Eos # 0.1 K/mm3 (0.0-0.4) 08/23/16 06:00 Baso # 0.0 K/mm3 (0.0-0.1) 08/23/16 06:00 Add Manual Diff Complete 08/24/16 06:09 Total Counted 100 08/24/16 06:09 Seg Neutrophils % 70.7 % (40.0-70.0) H 08/23/16 06:00 Seg Neuts % (Manual) 68.0 % (40.0-70.0) 08/24/16 06:09 Band Neutrophils % 0 % 08/24/16 06:09 Lymphocytes % (Manual) 25.0 % (13.4-35.0) 08/24/16 06:09 Reactive Lymphs % (Man) 0 % 08/24/16 06:09 Monocytes % (Manual) 4.0 % (0.0-7.3) 08/24/16 06:09 Eosinophils % (Manual) 0 % (0.0-4.3) 08/24/16 06:09 Basophils % (Manual) 0 % (0.0-1.8) 08/24/16 06:09 Metamyelocytes % 2.0 % 08/24/16 06:09 Myelocytes % 1.0 % 08/24/16 06:09 Promyelocytes % 0 % 08/24/16 06:09 Blast Cells % 0 % 08/24/16 06:09 Nucleated RBC % Not Reportable 08/24/16 06:09 Seg Neutrophils # 8.7 K/mm3 (1.8-7.7) H 08/23/16 06:00 Seg Neutrophils # Man 6.3 K/mm3 (1.8-7.7) 08/24/16 06:09 Band Neutrophils # 0.0 K/mm3 08/24/16 06:09 Lymphocytes # (Manual) 2.3 K/mm3 (1.2-5.4) 08/24/16 06:09 Abs React Lymphs (Man) 0.0 K/mm3 08/24/16 06:09 Monocytes # (Manual) 0.4 K/mm3 (0.0-0.8) 08/24/16 06:09 Eosinophils # (Manual) 0.0 K/mm3 (0.0-0.4) 08/24/16 06:09 Basophils # (Manual) 0.0 K/mm3 (0.0-0.1) 08/24/16 06:09 Metamyelocytes # 0.2 K/mm3 08/24/16 06:09 Myelocytes # 0.1 K/mm3 08/24/16 06:09 Promyelocytes # 0.0 K/mm3 08/24/16 06:09 Blast Cells # 0.0 K/mm3 08/24/16 06:09 WBC Morphology Not Reportable 08/24/16 06:09 Hypersegmented Neuts Not Reportable 08/24/16 06:09 Hyposegmented Neuts Not Reportable 08/24/16 06:09 Hypogranular Neuts Not Reportable 08/24/16 06:09 Smudge Cells Not Reportable 08/24/16 06:09 Toxic Granulation Not Reportable 08/24/16 06:09 Toxic Vacuolation Not Reportable 08/24/16 06:09 Dohle Bodies Not Reportable 08/24/16 06:09 Pelger-Huet Anomaly Not Reportable 08/24/16 06:09 [place]istair Rods Not Reportable 08/24/16 06:09 Platelet Estimate Appears normal 08/24/16 06:09 Clumped Platelets Not Reportable 08/24/16 06:09 Plt Clumps, EDTA Not Reportable 08/24/16 06:09 Large Platelets Not Reportable 08/24/16 06:09 Giant Platelets Not Reportable 08/24/16 06:09 Platelet Satelliting Not Reportable 08/24/16 06:09 Plt Morphology Comment Not Reportable 08/24/16 06:09 RBC Morphology Not Reportable 08/24/16 06:09 Dimorphic RBCs Not Reportable 08/24/16 06:09 Polychromasia Not Reportable 08/24/16 06:09 Hypochromasia Not Reportable 08/24/16 06:09 Poikilocytosis Not Reportable 08/24/16 06:09 Anisocytosis Few 08/24/16 06:09 Microcytosis Not Reportable 08/24/16 06:09 Macrocytosis Not Reportable 08/24/16 06:09 Spherocytes Not Reportable 08/24/16 06:09 Pappenheimer Bodies Not Reportable 08/24/16 06:09 Sickle Cells Not Reportable 08/24/16 06:09 Target Cells Not Reportable 08/24/16 06:09 Tear Drop Cells Not Reportable 08/24/16 06:09 Ovalocytes Not Reportable 08/24/16 06:09 Helmet Cells Not Reportable 08/24/16 06:09 [place] Bodies Not Reportable 08/24/16 06:09 [place] Rings Not Reportable 08/24/16 06:09 [place] Cells Not Reportable 08/24/16 06:09 Bite Cells Not Reportable 08/24/16 06:09 Crenated Cell Not Reportable 08/24/16 06:09 Elliptocytes Not Reportable 08/24/16 06:09 Acanthocytes (Spur) Not Reportable 08/24/16 06:09 Rouleaux Not Reportable 08/24/16 06:09 Hemoglobin C Crystals Not Reportable 08/24/16 06:09 Schistocytes Not Reportable 08/24/16 06:09 [place] parasites Not Reportable 08/24/16 06:09 [place] Bodies Not Reportable 08/24/16 06:09 Hem Pathologist Commnt No 08/24/16 06:09 Sodium 140 mmol/L (137-145) 08/25/16 07:00 Potassium 3.7 mmol/L (3.6-5.0) 08/25/16 07:00 Chloride 104.7 mmol/L (98-107) 08/25/16 07:00 Carbon Dioxide 23 mmol/L (22-30) 08/25/16 07:00 Anion Gap 16 mmol/L 08/25/16 07:00 BUN 10 mg/dL (7-17) 08/25/16 07:00 Creatinine 1.7 mg/dL (0.7-1.2) H 08/25/16 07:00 Estimated GFR 38 ml/min 08/25/16 07:00 BUN/Creatinine Ratio 5.88 % 08/25/16 07:00 Glucose 149 mg/dL (65-100) H 08/25/16 07:00 POC Glucose 143 (70-105) H 08/24/16 20:46 Hemoglobin A1c 13.6 % (4-6) H 08/25/16 07:00 Calcium 8.2 mg/dL (8.4-10.2) L 08/25/16 07:00 Total Bilirubin 0.2 mg/dL (0.1-1.2) 08/24/16 06:09 AST 20 units/L (5-40) 08/24/16 06:09 ALT 11 units/L (7-56) 08/24/16 06:09 Alkaline Phosphatase 105 units/L (35-129) 08/24/16 06:09 Total Protein 6.0 g/dL (6.3-8.2) L 08/24/16 06:09 Albumin 2.2 g/dL (3.9-5) L 08/24/16 06:09 Albumin/Globulin Ratio 0.6 % 08/24/16 06:09
--- NOTE | 2016-08-25 12:30 | Ultrasound Report ---
ULTRASOUND BLADDER RESIDUAL History: Acute renal failure, evaluate postvoid residual. Findings: Transabdominal ultrasound was utilized. Pre-void bladder volume measures 390 cc. Postvoid residual measures 37 cc. Impression: Small post void residual measuring 37 cc.
[2016-08-25] MEDS: NACL 0.9% 1000 ML 1,000 ML IV SCH ×2 (17:46→23:53)
[2016-08-25] MEDS: VANCOMYCIN VIAL 1,250 MG in NACL 0.9% 250ML 250 ML IV SCH (20:19)
[2016-08-25] MEDS: LEVEMIR SUB-Q SCH (22:00)
[2016-08-26] MEDS: FLAGYL PO SCH ×3 (05:23→22:44)
[2016-08-26] MEDS: PERCOCET 5/325 PO PRN (05:23)
[2016-08-26] MEDS: NACL 0.9% 1000 ML 1,000 ML IV SCH ×2 (05:31→21:00)
[2016-08-26 06:05] LABS: Hematocrit 30.5 % (30.3-42.9); Hemoglobin 10.4 gm/dl (10.1-14.3); Mean Corpuscular HGB Conc 34 % (30-34); Mean Corpuscular Hemoglobin 28 pg (28-32); Mean Corpuscular Volume 83 fl (79-97); Platelet Count 286 K/mm3 (140-440); Red Blood Count 3.68 M/mm3 (3.65-5.03); Red Cell Distribution Width 12.5 % (13.2-15.2); White Blood Count 6.8 K/mm3 (4.5-11.0)
[2016-08-26 06:24] LABS: Calcium 8.1 mg/dL (8.4-10.2); Chloride 103.2 mmol/L (98-107); Potassium 3.4 mmol/L (3.6-5.0)
--- NOTE | 2016-08-26 07:16 | Ultrasound Report ---
ULTRASOUND RENAL BILATERAL HISTORY: Acute renal insufficiency. TECHNIQUE: transabdominal ultrasound with color Doppler interrogation. FINDINGS: The right kidney measures 13.4 x 5.6 x 5.3cm. Right renal cortex: 1.3cm. The left kidney measures 12.2 x 6.1 x 5.1cm. Left renal cortex: 1.3cm. Scans of the kidneys show normal renal contours. There is normal central calyceal clustering and good preservation of the cortical thickness. There is no evidence of mass or hydronephrosis. The views of the bladder and the region of the ureters appear normal. IMPRESSION: Unremarkable renal ultrasound.
[2016-08-26] MEDS: NOVOLOG SUB-Q SCH ×7 (08:05→23:36)
--- NOTE | 2016-08-26 08:29 | Progress Note ---
Assessment and Plan This is a 50 year old lady admitted for right breast necrotizing fascitis POD # 4 right breast incision, drainage and debridement. No acute events overnight. Pain well controlled. Afebrile. 1. Neuro-awake, alert and oriented with no deficits. Pain in good control and will continue with prn pain medication. 2. Resp-incentive spirometry at bedside and patient instructed to actively use. 3. Cardiac-hemodynamically stable. No acute issues. 4. GI-diabetic diet. Nutrition consulted. 5. ID-patient admitted with sepsis with current cultures from OR with enterococcus and will continue with Vancomycin-dosed by pharmacy and po flagyl and will make changes and transition to po antibiotics when final culture results with sensitivities are available. Spoke with pharmacy yesterday and dosing with renal protocol, trough 21 and Vancomycin held yesterday. Patient remains afebrile and WBC normalized. Right breast wound with no further signs of necrosis and dressing changed. Will change again later today-wet to dry dressing changes. Dr. Villanueva consulted who will see patient later this week-she will need plastics closure. 6. Renal-decrease Creatinine to 1.[address] Connolly with nephrology consulted yesterday and labs drawn for FENa with findings of azotemia prenal and will continue with IVFs that were started at admission that she has been continued on and will repeat metabolic panel in the morning. If stable Dr. Connolly will see her as an outpatient. Renal ultrasound and bladder scan with negative findings. Heparin SQ for DVT prophylaxsis. Potassium 3.4 and will replace with po meds. 7. Endocrine-patient a known diabetic with poor control and currently not being treated for her diabetes as an outpatient. Started insulin at admission and consulted hospitalist for recommendations for control with changes made with improved control. Will follow-up with Dr. Watts as an outpatient. 8. Social work-consulted for home health and arranged for discharge. Subjective Date of service: 08/26/16 Principal diagnosis: Right breast necrotizing fascitis Interval history: This is a 50 year old lady who was admitted on 08/22/2016 for right breast necrotizing fascititis of the right lower inner quadrant. She underwent incision , drainage and debridement on August 22, 2016. Patient progressing well. Objective - Constitutional Vitals: Vital Signs - 12hr 08/25/16 08/26/16 23:59 05:26 Temperature 98.5 F 98.3 F Pulse Rate [ 75 73 Right Brachial] Respiratory 20 20 Rate Blood Pressure 143/86 142/89 [Right Arm] General appearance: Present: no acute distress - EENT Eyes: PERRL, EOM intact ENT: hearing intact, clear oral mucosa, dentition normal Ears: bilateral: normal - Neck Neck: supple, normal ROM - Respiratory Respiratory effort: normal Respiratory: bilateral: CTA - Breasts Breasts: other (Right breast wound from the 3 to 6:00 positions-tissues perfused with no further signs of necrosis, no drainage, continue with wet to dry) - Cardiovascular Rhythm: regular Extremities: no ischemia, pulses intact, pulses symmetrical, No edema - Gastrointestinal General gastrointestinal: Present: soft, non-tender, non-distended Rectal Exam: deferred - Genitourinary Female genitourinary: deferred - Integumentary Integumentary: clear, warm, dry - Musculoskeletal Musculoskeletal: strength equal bilaterally - Neurologic Neurologic: CNII-XII intact, moves all extremities, gait normal - Psychiatric Psychiatric: appropriate mood/affect, intact judgment & insight, memory intact, cooperative - Labs CBC & Chem 7: 08/26/16 05:49 08/26/16 05:49 Labs: Abnormal lab results 08/25/16 08/25/16 08/25/16 Range/Units 08:07 12:55 13:20 RDW (13.2-15.2) % Potassium (3.6-5.0) mmol/L Creatinine (0.7-1.2) mg/dL POC Glucose 146 H 204 H (70-105) Calcium (8.4-10.2) mg/dL Total Creatine Kinase (30-135) units/L Urine Creatinine (0.1-20.0) mg/dL Vancomycin Trough 21.5 H (5.0-20.0) ug/mL 08/25/16 08/26/16 08/26/16 Range/Units 20:47 05:49 05:49 RDW 12.5 L (13.2-15.2) % Potassium 3.4 L (3.6-5.0) mmol/L Creatinine 1.6 H (0.7-1.2) mg/dL POC Glucose (70-105) Calcium 8.1 L (8.4-10.2) mg/dL Total Creatine Kinase 18 L (30-135) units/L Urine Creatinine 47.4 H (0.1-20.0) mg/dL Vancomycin Trough (5.0-20.0) ug/mL
[2016-08-26 08:39] LABS: Basophils % (Manual) 0 % (0.0-1.8); Blastocytes % (Manual) 0 %
[2016-08-26 08:43] LABS: Anisocytosis Few; Diff Status Complete; Platelet Estimate Consistent w Auto
[2016-08-26] MEDS: VANCOMYCIN VIAL 1,250 MG in NACL 0.9% 250ML 250 ML IV SCH ×3 (09:30→19:38)
[2016-08-26] MEDS ORDERED: K-DUR PO ONE (10:00)
[2016-08-26] MEDS: PROTONIX PO SCH (10:47)
[2016-08-26] MEDS: HEPARIN SUB-Q SCH ×2 (10:48→22:42)
--- NOTE | 2016-08-26 11:05 | Progress Note ---
Assessment and Plan Assessment and plan: 1. DM continue current insulin regimen, glc at goal, 2. HTN Bp is acceptable 3. Left breast necrotic mass sp resection, low suspicion of local infection, 4. LIZZETTE likely prerenal improving, further care per renal, avoid nephrotoxic infection outpatient rx for insulins, glucometer and diabetic supplies ordered for patient , medicine will sign off, pls reconsult as needed History Interval history: Denies fevers, denies chills, denies polyuria polydipsia, denies headache or chest pain. Hospitalist Physical - Physical exam Narrative exam: General: Patient appears well in no distress HEENT: MMM, EOMI cardiac: S1-S2 heard lungs: clear to auscultation, Left breasts postsurgical changes, clean bandage seen abdomen: soft, nontender, nondistended bowel sounds positive extremities: no edema clubbing or cyanosis Skin: no rash or lesion Neuro: no focal deficit Psych: appropriate behavior and mood, cognition intact - Constitutional Vitals: Temp Pulse Resp BP Pulse Ox 98.4 F 81 18 132/81 96 08/26/16 08:50 08/26/16 08:50 08/26/16 08:50 08/26/16 08:50 08/22/16 19:30 General appearance: Present: no acute distress Results - Labs CBC & Chem 7: 08/26/16 05:49 08/26/16 05:49 Labs: Laboratory Last Values WBC 6.8 K/mm3 (4.5-11.0) 08/26/16 05:49 RBC 3.68 M/mm3 (3.65-5.03) 08/26/16 05:49 Hgb 10.4 gm/dl (10.1-14.3) 08/26/16 05:49 Hct 30.5 % (30.3-42.9) 08/26/16 05:49 MCV 83 fl (79-97) 08/26/16 05:49 MCH 28 pg (28-32) 08/26/16 05:49 MCHC 34 % (30-34) 08/26/16 05:49 RDW 12.5 % (13.2-15.2) L 08/26/16 05:49 Plt Count 286 K/mm3 (140-440) 08/26/16 05:49 Lymph % (Auto) 17.5 % (13.4-35.0) 08/23/16 06:00 [place] % (Auto) 10.8 % (0.0-7.3) H 08/23/16 06:00 Eos % (Auto) 0.8 % (0.0-4.3) 08/23/16 06:00 Baso % (Auto) 0.2 % (0.0-1.8) 08/23/16 06:00 Lymph # 2.2 K/mm3 (1.2-5.4) 08/23/16 06:00 [place] # 1.3 K/mm3 (0.0-0.8) H 08/23/16 06:00 Eos # 0.1 K/mm3 (0.0-0.4) 08/23/16 06:00 Baso # 0.0 K/mm3 (0.0-0.1) 08/23/16 06:00 Add Manual Diff Complete 08/26/16 05:49 Total Counted 100 08/26/16 05:49 Seg Neutrophils % 70.7 % (40.0-70.0) H 08/23/16 06:00 Seg Neuts % (Manual) 70.0 % (40.0-70.0) 08/26/16 05:49 Band Neutrophils % 0 % 08/26/16 05:49 Lymphocytes % (Manual) 21.0 % (13.4-35.0) 08/26/16 05:49 Reactive Lymphs % (Man) 0 % 08/26/16 05:49 Monocytes % (Manual) 7.0 % (0.0-7.3) 08/26/16 05:49 Eosinophils % (Manual) 1.0 % (0.0-4.3) 08/26/16 05:49 Basophils % (Manual) 0 % (0.0-1.8) 08/26/16 05:49 Metamyelocytes % 1.0 % 08/26/16 05:49 Myelocytes % 0 % 08/26/16 05:49 Promyelocytes % 0 % 08/26/16 05:49 Blast Cells % 0 % 08/26/16 05:49 Nucleated RBC % Not Reportable 08/26/16 05:49 Seg Neutrophils # 8.7 K/mm3 (1.8-7.7) H 08/23/16 06:00 Seg Neutrophils # Man 4.8 K/mm3 (1.8-7.7) 08/26/16 05:49 Band Neutrophils # 0.0 K/mm3 08/26/16 05:49 Lymphocytes # (Manual) 1.4 K/mm3 (1.2-5.4) 08/26/16 05:49 Abs React Lymphs (Man) 0.0 K/mm3 08/26/16 05:49 Monocytes # (Manual) 0.5 K/mm3 (0.0-0.8) 08/26/16 05:49 Eosinophils # (Manual) 0.1 K/mm3 (0.0-0.4) 08/26/16 05:49 Basophils # (Manual) 0.0 K/mm3 (0.0-0.1) 08/26/16 05:49 Metamyelocytes # 0.1 K/mm3 08/26/16 05:49 Myelocytes # 0.0 K/mm3 08/26/16 05:49 Promyelocytes # 0.0 K/mm3 08/26/16 05:49 Blast Cells # 0.0 K/mm3 08/26/16 05:49 WBC Morphology Not Reportable 08/26/16 05:49 Hypersegmented Neuts Not Reportable 08/26/16 05:49 Hyposegmented Neuts Not Reportable 08/26/16 05:49 Hypogranular Neuts Not Reportable 08/26/16 05:49 Smudge Cells Not Reportable 08/26/16 05:49 Toxic Granulation Not Reportable 08/26/16 05:49 Toxic Vacuolation Not Reportable 08/26/16 05:49 Dohle Bodies Not Reportable 08/26/16 05:49 Pelger-Huet Anomaly Not Reportable 08/26/16 05:49 Alistair Rods Not Reportable 08/26/16 05:49 Platelet Estimate Consistent w auto 08/26/16 05:49 Clumped Platelets Not Reportable 08/26/16 05:49 Plt Clumps, EDTA Not Reportable 08/26/16 05:49 Large Platelets Not Reportable 08/26/16 05:49 Giant Platelets Not Reportable 08/26/16 05:49 Platelet Satelliting Not Reportable 08/26/16 05:49 Plt Morphology Comment Not Reportable 08/26/16 05:49 RBC Morphology Not Reportable 08/26/16 05:49 Dimorphic RBCs Not Reportable 08/26/16 05:49 Polychromasia Not Reportable 08/26/16 05:49 Hypochromasia Not Reportable 08/26/16 05:49 Poikilocytosis Not Reportable 08/26/16 05:49 Anisocytosis Few 08/26/16 05:49 Microcytosis Not Reportable 08/26/16 05:49 Macrocytosis Not Reportable 08/26/16 05:49 Spherocytes Not Reportable 08/26/16 05:49 Pappenheimer Bodies Not Reportable 08/26/16 05:49 Sickle Cells Not Reportable 08/26/16 05:49 Target Cells Not Reportable 08/26/16 05:49 Tear Drop Cells Not Reportable 08/26/16 05:49 Ovalocytes Not Reportable 08/26/16 05:49 Helmet Cells Not Reportable 08/26/16 05:49 [place] Bodies Not Reportable 08/26/16 05:49 [place] Rings Not Reportable 08/26/16 05:49 Julio Cells Not Reportable 08/26/16 05:49 Bite Cells Not Reportable 08/26/16 05:49 Crenated Cell Not Reportable 08/26/16 05:49 Elliptocytes Not Reportable 08/26/16 05:49 Acanthocytes (Spur) Not Reportable 08/26/16 05:49 Rouleaux Not Reportable 08/26/16 05:49 Hemoglobin C Crystals Not Reportable 08/26/16 05:49 Schistocytes Not Reportable 08/26/16 05:49 Malaria parasites Not Reportable 08/26/16 05:49 Zackery Bodies Not Reportable 08/26/16 05:49 Hem Pathologist Commnt No 08/26/16 05:49 Sodium 139 mmol/L (137-145) 08/26/16 05:49 Potassium 3.4 mmol/L (3.6-5.0) L 08/26/16 05:49 Chloride 103.2 mmol/L (98-107) 08/26/16 05:49 Carbon Dioxide 24 mmol/L (22-30) 08/26/16 05:49 Anion Gap 15 mmol/L 08/26/16 05:49 BUN 8 mg/dL (7-17) 08/26/16 05:49 Creatinine 1.6 mg/dL (0.7-1.2) H 08/26/16 05:49 Estimated GFR 41 ml/min 08/26/16 05:49 BUN/Creatinine Ratio 5.00 % 08/26/16 05:49 Glucose 99 mg/dL (65-100) 08/26/16 05:49 POC Glucose 94 (70-105) 08/26/16 05:10 Hemoglobin A1c 13.6 % (4-6) H 08/25/16 07:00 Calcium 8.1 mg/dL (8.4-10.2) L 08/26/16 05:49 Total Bilirubin 0.2 mg/dL (0.1-1.2) 08/24/16 06:09 AST 20 units/L (5-40) 08/24/16 06:09 ALT 11 units/L (7-56) 08/24/16 06:09 Alkaline Phosphatase 105 units/L (35-129) 08/24/16 06:09 Total Creatine Kinase 18 units/L (30-135) L 08/26/16 05:49 Total Protein 6.0 g/dL (6.3-8.2) L 08/24/16 06:09 Albumin 2.2 g/dL (3.9-5) L 08/24/16 06:09 Albumin/Globulin Ratio 0.6 % 08/24/16 06:09 Urine Eosinophils None seen (None Seen) 08/25/16 20:47 Urine Creatinine 47.4 mg/dL (0.1-20.0) H 08/25/16 20:47 Urine Sodium 38 mEq/L 08/25/16 20:47 Urine Total Protein 7 mg/dL (5-11.8) 08/25/16 20:47 Vancomycin Trough 21.5 ug/mL (5.0-20.0) H 08/25/16 13:20
[2016-08-26] MEDS: LEVEMIR SUB-Q SCH (22:43)
[2016-08-27] MEDS: FLAGYL PO SCH (05:44)
[2016-08-27 05:45] LABS: BUN/Creatinine Ratio 6.66; Calcium 8.1 mg/dL (8.4-10.2); Chloride 105.9 mmol/L (98-107); Potassium 3.8 mmol/L (3.6-5.0)
[2016-08-27] MEDS: NACL 0.9% 1000 ML 1,000 ML IV SCH (05:45)
--- NOTE | 2016-08-27 06:32 | Progress Note ---
Assessment and Plan This is a 50 year old lady admitted for right breast necrotizing fascitis POD # 5 right breast incision, drainage and debridement. No acute events overnight. Pain well controlled. Afebrile. 1. Neuro-awake, alert and oriented with no deficits. Pain in good control and will continue with prn pain medication. 2. Resp-incentive spirometry at bedside and patient instructed to actively use. 3. Cardiac-hemodynamically stable. No acute issues. 4. GI-diabetic diet. Nutrition consulted. 5. ID-patient admitted with sepsis with current cultures from OR with enterococcus and sensitives available today and will d/c vancomycin and flagyl and start po Levaquin. Will continue with wet to dry dressing changes. Dr. Villanueva consulted who will see patient later this week-she will need plastics closure. 6. Renal-decrease Creatinine to 1.[address] Connolly with nephrology consulted on Friday with findings of azotemia prenal. Renal ultrasound and bladder scan with negative findings. Heparin SQ for DVT prophylaxis and SCDs since admission. Potassium replaced yesterday for 3.4 and normal today. Patient will be seen as an outpatient by Dr. Pretty and antibiotics renal dosed. 7. Endocrine-patient a known diabetic with poor control and currently not being treated for her diabetes as an outpatient. Started insulin at admission and consulted hospitalist for recommendations for control with changes made with improved control. Will follow-up with Dr. Watts as an outpatient. 8. Social work-consulted for home health and arranged for discharge. Dressing changes education performed and home health arrange. 9. Vascular-concerns overnight of right lower extremity DVT and exam today with minimal edema and nontender lower extremity, ultrasound of right lower extremity negative for DVT. 10. D/C planning for today. Patient to see me in the office on . Subjective Date of service: 08/27/16 Principal diagnosis: Right breast necrotizing fascitis Interval history: This is a 50 year old lady who was admitted on 08/22/2016 for right breast necrotizing fascititis of the right lower inner quadrant. She underwent incision , drainage and debridement on August 22, 2016. Patient progressing well. Objective - Constitutional Vitals: Vital Signs - 12hr 08/27/16 08/27/16 00:00 04:00 Temperature 98.0 F 98.4 F Pulse Rate [ 88 78 Right Brachial] Respiratory 18 20 Rate Blood Pressure 133/78 145/73 [Right Arm] General appearance: Present: no acute distress - EENT Eyes: PERRL, EOM intact ENT: hearing intact, clear oral mucosa, dentition normal Ears: bilateral: normal - Neck Neck: supple, normal ROM - Respiratory Respiratory effort: normal Respiratory: bilateral: CTA - Breasts Breasts: other (right breast wound-incision from the 3-6:00 positions with tissues healing nicely with no further signs of infection or necrosis, tissues well perfused, appropriate tenderness) - Cardiovascular Rhythm: regular Extremities: no ischemia, pulses intact, pulses symmetrical, normal temperature , normal color, Full ROM Extremity abnormal: other (right lower extremity with slight pitting edema) - Gastrointestinal General gastrointestinal: Present: soft, non-tender, non-distended Rectal Exam: deferred - Genitourinary Female genitourinary: deferred - Integumentary Integumentary: clear, warm, dry - Musculoskeletal Musculoskeletal: strength equal bilaterally - Neurologic Neurologic: CNII-XII intact, moves all extremities, gait normal - Psychiatric Psychiatric: appropriate mood/affect, intact judgment & insight, memory intact, cooperative - Labs CBC & Chem 7: 08/26/16 05:49 08/27/16 05:05 Labs: Abnormal lab results 08/26/16 08/26/16 08/26/16 Range/Units 12:16 17:06 22:52 Creatinine (0.7-1.2) mg/dL Glucose (65-100) mg/dL POC Glucose 153 H 188 H 175 H (70-105) Calcium (8.4-10.2) mg/dL 08/27/16 Range/Units 05:05 Creatinine 1.5 H (0.7-1.2) mg/dL Glucose 123 H (65-100) mg/dL POC Glucose (70-105) Calcium 8.1 L (8.4-10.2) mg/dL
[2016-08-27] MEDS: NOVOLOG SUB-Q SCH ×4 (08:40→12:32)
[2016-08-27] MEDS: HEPARIN SUB-Q SCH (08:55)
--- NOTE | 2016-08-27 13:55 | Discharge Summary ---
Providers - Providers Date of Admission: 08/22/16 12:39 Date of discharge: 08/27/16 Attending physician: Jermaine Huff MD 08/23/16 13:26 Consult to Physician [CONS] Urgent Consulting Provider: JERAMINE HUFF Reason For Exam: diabetes control Place consult to:: Dr. Watts, hospitalist Notified:: yes 08/24/16 00:36 Consult to Dietitian/Nutrition [CONS] Routine Physician Instructions: Reason For Exam: Diabetes education also Reason for Consult: Nutrition Recommendations Reason for Consult: Diet education 08/24/16 10:38 Consult to Dietitian/Nutrition [CONS] Routine Physician Instructions: Reason For Exam: Albumin 2.2 Reason for Consult: Nutrition Recommendations Reason for Consult: Pt needs oral supplement 08/25/16 08:14 Consult to Physician [CONS] Urgent Consulting Provider: JERMAINE HUFF Reason For Exam: acute renal failure Place consult to:: Dr. Connolly Notified:: spoke to answering service at [phone] Connolly will return call If yes, spoke with:: haylie from answering service Time called:: 08:10 Primary care physician: HALEIGH MORALES Hospitalization Hospital course: This is a 50 year old lady admitted on 08/22/16 for right breast necrotizing fascitis. She was taken to the OR the evening of admission and underwent a right breast incision and drainage with debridement. She was extubated [facility] She was started on Vancomycin and Flagyl and then later switched to Levaquin given cultures positive for enterococcus. She was admitted for sepsis with WBC normalizing after surgery. Nephrology Dr. Connolly was consulted due to acute tubular necrosis with renal function improving. Right breast wound with no further signs of infection or necrosis and she will be followed closely by Dr. Villanueva. Dr. Watts consulted at admission for diabetes control. She did well during her admission, wound care consulted and home health arranged. Disposition: DC/TX SHORT-TERM GEN HOSP INPT - Discharge Diagnoses (1) Sepsis affecting skin Status: Resolved (2) Necrotizing fasciitis Status: Resolved (3) Diabetes mellitus Status: Chronic Qualifiers: Diabetes mellitus type: type 2 Laterality: right (4) Prerenal azotemia Status: Acute (5) DVT prophylaxis Status: Acute Core Measure Documentation - Palliative Care Palliative Care/ Comfort Measures: Not Applicable - Core Measures Any of the following diagnoses?: none - VTE Discharge Requirements Deep Vein Thrombosis/Pulmonary Embolism Present on Admission: No Has pt received <5 days of overlap therapy or INR<2.0: No Anticoagulant overlap therapy prescribed at discharge: No Contraindication No Overlap Therapy order at DC: Not Indicated - Acute AL Discharge Requirements Aspirin at discharge: No Reason for no aspirin on DC: Surgical contraindication MARIANGEL/ARB for LVSD if EF <40%: Not Applicable Beta himanshu at discharge: No Reason for no beta himanshu on DC: Medical contraindication (not indicated) Statin for LDL = or >100 mg/dl on DC: Not Applicable - Heart Failure Discharge Requirements MARIANGEL/ARB for LVSD if EF <40%: Not Applicable Exam - Constitutional Vitals: Temp Pulse Resp BP Pulse Ox 98.4 F 71 20 148/90 96 08/27/16 08:05 08/27/16 08:05 08/27/16 08:05 08/27/16 08:05 08/22/16 19:30 General appearance: Present: no acute distress - EENT Eyes: Present: PERRL, EOM intact ENT: hearing intact, clear oral mucosa - Neck Neck: Present: supple, normal ROM - Respiratory Respiratory: bilateral: CTA - Cardiovascular Rhythm: regular - Extremities Extremities: no ischemia, pulses intact, pulses symmetrical, No edema, normal temperature, normal color, Full ROM - Abdominal General gastrointestinal: Present: soft, non-tender, non-distended Female genitourinary: Present: deferred - Rectal Rectal Exam: deferred - Integumentary Integumentary: Present: clear, warm, dry - Musculoskeletal Musculoskeletal: strength equal bilaterally - Psychiatric Psychiatric: appropriate mood/affect, intact judgment & insight, memory intact, cooperative - Neurologic Neurologic: CNII-XII intact, moves all extremities Plan Activity: no restrictions Diet: diabetic Wound: other (dressing changes three times a day) Follow up with: HALEIGH MORALES MD [Primary Care Provider] - 7 Days JERMAINE HUFF MD [Staff Physician] - 08/29/16 Forms: [facility] Discharge Summary, Discharge Signature Page Prescriptions: Insulin Glargine,Hum.rec.anlog [Lantus Solostar] 20 units SQ QHS #5 pen Insulin Aspart [NovoLOG Flexpen] 6 units SQ AC #5 pen oxyCODONE /ACETAMINOPHEN [Percocet 5/325] 1 tab PO Q6HR PRN #30 tablet PRN Reason: Pain Other Discharge Orders: Glucometer (Amb) Location: Determined By Patient Glucometer supplies[Amb] Location: Determined By Patient
[2016-08-27] MEDS ORDERED: LEVAQUIN PO SCH (14:00)
[2016-08-27 17:39] VITALS: BP 146/89
== END 2016-08-27 17:30 | disposition short-term general hospital (02) | DRG 853 ==
LOC: OR 12:38 → OB 12:39 → 3A 18:30 → OB 18:43
PROVIDERS: ADMIT Surgery; ATTEND Internal Medicine
PROC: 0J960ZX Drainage of Chest Subcutaneous Tissue and Fascia, Open Approach, Diagnostic (ICD-10-PCS; principal; 2016-08-22)
PROC: 0JB60ZZ Excision of Chest Subcutaneous Tissue and Fascia, Open Approach (ICD-10-PCS; 2016-08-22)
DX: A41.9 Sepsis, unspecified organism (principal); M72.6 Necrotizing fasciitis; N17.0 Acute kidney failure with tubular necrosis; N61.1 Abscess of the breast and nipple; K21.9 Gastro-esophageal reflux disease without esophagitis; R79.89 Other specified abnormal findings of blood chemistry; Z87.891 Personal history of nicotine dependence; Z79.899 Other long term (current) drug therapy; E11.65 Type 2 diabetes mellitus with hyperglycemia
CPT/HCPCS: 36415; 76770; 76857; 80048; 80053; 80202; 82550; 82570; 82962; 83036; 84156; 84300; 85007; 85025; 87075; 87076; 87086; 87116; 87186; 88304; 88307; 89050; A4217; J1170; J1644; J1650; J1815; J1818; J2250; J2270; J2405; J2543; J2704; J3010; J3370; J7030; J7050; J7120

== ENCOUNTER 2016-09-09 06:53 | Day surgery (SDC) | payer OTHER ==
--- NOTE | 2016-09-09 07:44 | Anesthesia Consultation ---
Anesthesia Consult and Med Hx - Airway Anesthetic Teeth Evaluation: Caps (uppper front) ROM Head & Neck: Adequate Mental/Hyoid Distance: Adequate Mallampati Class: Class II Intubation Access Assessment: Probably Good - Pulmonary Exam CTA: Yes - Cardiac Exam Cardiac Exam: RRR - Pre-Operative Health Status ASA Pre-Surgery Classification: ASA2 - Pulmonary Hx Smoking: Yes (3 years, quit 11/2015) - Cardiovascular System Hx Hypertension: No - Central Nervous System Hx Neuromuscular Disorder: No Hx Psychiatric Problems: No - Gastrointestinal Hx Gastroesophageal Reflux Disease: Yes (uncontrolled) - Endocrine Hx Insulin Dependent Diabetes: Yes (pt takes 20 units insulin daily) - Hematic Hx Anemia: No Hx Sickle Cell Disease: No - Other Systems Hx Alcohol Use: No Hx Substance Use: No Hx Cancer: No Hx Obesity: No
--- NOTE | 2016-09-09 07:45 | Anesthesia Day of Surgery ---
Anesthesia Day of Surgery - Day of Surgery Patient Examined: Yes Patient H&P Reviewed: Yes Patient is NPO: Yes
[2016-09-09] MEDS ORDERED: PEPCID IV NR (07:47)
[2016-09-09] MEDS ORDERED: VERSED IV NR (07:48)
[2016-09-09] MEDS ORDERED: DECADRON ONE (07:50)
[2016-09-09] MEDS ORDERED: XYLOCAINE MPF 2% ONE (07:50)
[2016-09-09] MEDS ORDERED: DIPRIVAN 10 MG/ML IV ONE (07:50)
[2016-09-09] MEDS ORDERED: ZOFRAN ONE ×2 (07:50)
[2016-09-09] MEDS ORDERED: DILAUDID ONE ×2 (07:50→09:28)
[2016-09-09] MEDS ORDERED: SUBLIMAZE ONE (07:51)
[2016-09-09] MEDS ORDERED: ANCEF/STERILE WATER 2 GM/20 ML IV NR (08:00)
[2016-09-09] MEDS ORDERED: NACL 0.9% 1000 ML 1,000 ML IV SCH (08:00)
[2016-09-09] MEDS ORDERED: NACL 0.9% IR ONE (08:15)
[2016-09-09 08:24] LABS: Hematocrit 31.6 % (30.3-42.9); Hemoglobin 10.5 gm/dl (10.1-14.3)
[2016-09-09] MEDS: DILAUDID IV PRN ×2 (09:30→09:45)
--- NOTE | 2016-09-09 09:41 | Operative Report ---
SERVICE: Plastic surgery. PREOPERATIVE DIAGNOSES: 1. Open wound of right breast. 2. Status post necrotizing soft tissue infection of right breast. POSTOPERATIVE DIAGNOSES: 1. Open wound of right breast 2. Status post necrotizing soft tissue infection of right breast. PROCEDURE: 1. Tangential excisional prep of right breast 75 square cm. 2. Split thickness skin graft to right breast 75 square cm. DESCRIPTION OF PROCEDURE: The patient was brought to the operating room and placed on the table in supine position. Following administration of general anesthesia, the right breast and right thigh were prepped with Betadine solution and draped in usual sterile manner. A #10 blade scalpel was used to tangentially excise the right breast wound down to healthy bleeding tissue. Kinga Brown dermatome was used to harvest a split thickness skin graft measuring pie crusted with a 15 blade scalpel, secured in place with kailey followed by a sterile occlusive dressing. Xeroform gauze and sterile occlusive dressing was also applied to the right thigh. The patient tolerated the procedure well and returned to recovery room in stable condition. JOB# [id number] FTW/[id number]
[2016-09-09] MEDS ORDERED: ZOFRAN IV PRN (10:00)
[2016-09-09 12:06] VITALS: BP 160/68
== END 2016-09-09 12:20 | disposition home or self-care (01) ==
LOC: OR 06:53
PROVIDERS: ATTEND Plastic Surgery
DX: S21.001A Unspecified open wound of right breast, initial encounter (principal); E11.9 Type 2 diabetes mellitus without complications; K21.9 Gastro-esophageal reflux disease without esophagitis; Z79.4 Long term (current) use of insulin; X58.XXXA Exposure to other specified factors, initial encounter; Y93.9 Activity, unspecified; Y92.9 Unspecified place or not applicable; Y99.9 Unspecified external cause status
CPT/HCPCS: 15100; 36415; 82962; 85014; 85018; J0690; J1170; J2250; J2405; J2704; J3010; J7030; J1100

== ENCOUNTER 2017-02-24 11:33 | Day surgery (SDC) | payer OTHER ==
[2017-02-24 13:39] LABS: Hematocrit 35.4 % (30.3-42.9); Hemoglobin 12.4 gm/dl (10.1-14.3); Mean Corpuscular HGB Conc 35 % (30-34); Mean Corpuscular Hemoglobin 28 pg (28-32); Mean Corpuscular Volume 80 fl (79-97); Platelet Count 219 K/mm3 (140-440); Red Cell Distribution Width 12.5 % (13.2-15.2); White Blood Count 7.4 K/mm3 (4.5-11.0)
--- NOTE | 2017-02-24 13:46 | Anesthesia Consultation ---
Anesthesia Consult and Med Hx Date of service: 02/24/17 - Airway Anesthetic Teeth Evaluation: Good ROM Head & Neck: Adequate Mental/Hyoid Distance: Adequate Mallampati Class: Class II Intubation Access Assessment: Probably Good - Pulmonary Exam CTA: Yes - Cardiac Exam Cardiac Exam: RRR - Pre-Operative Health Status ASA Pre-Surgery Classification: ASA3 Proposed Anesthetic Plan: General - Pre-Anesthesia Comment Pre-Anesthesia Comments: Several rear teeth slightly loose. - Pulmonary Hx Smoking: Yes (CIGARETTES FOR 3 years, quit 11/2015) - Cardiovascular System Hx Hypertension: Yes (not diagnosed, may be white coat) - Central Nervous System Hx Neuromuscular Disorder: No Hx Psychiatric Problems: No - Gastrointestinal Hx Gastroesophageal Reflux Disease: Yes (uncontrolled) - Endocrine Hx Insulin Dependent Diabetes: Yes (BG elevated today. Pt has been attempting diet control) - Other Systems Hx Alcohol Use: No Hx Substance Use: No Hx Cancer: No
--- NOTE | 2017-02-24 13:47 | Anesthesia Day of Surgery ---
Anesthesia Day of Surgery - Day of Surgery Patient Examined: Yes Patient H&P Reviewed: Yes Patient is NPO: Yes
[2017-02-24] MEDS ORDERED: ZOFRAN IV PRN (13:48)
[2017-02-24] MEDS ORDERED: DILAUDID IV PRN (13:48)
[2017-02-24] MEDS ORDERED: PERCOCET 5/325 PO PRN (13:48)
[2017-02-24] MEDS ORDERED: NACL 0.9% 1000 ML 1,000 ML IV SCH (14:00)
[2017-02-24] MEDS ORDERED: NEO SYNEPHRINE/NS Syringe(OR USE) IV ONE (14:00)
[2017-02-24] MEDS ORDERED: VERSED IV NR (14:00)
[2017-02-24] MEDS ORDERED: PEPCID PO NR (14:00)
[2017-02-24] MEDS ORDERED: DILAUDID ONE ×2 (14:19→15:06)
[2017-02-24] MEDS ORDERED: XYLOCAINE MPF 2% ONE (14:19)
[2017-02-24] MEDS ORDERED: DIPRIVAN 10 MG/ML IV ONE (14:19)
[2017-02-24] MEDS ORDERED: ePHEDrine SULFATE ONE (14:44)
[2017-02-24] MEDS ORDERED: ANCEF ONE ×2 (14:49→14:50)
[2017-02-24] MEDS ORDERED: NACL 0.9% IR ONE (15:14)
[2017-02-24] MEDS ORDERED: DECADRON ONE (15:57)
[2017-02-24] MEDS ORDERED: ZOFRAN ONE (15:57)
[2017-02-24] MEDS ORDERED: NACL 0.9% 1000 ML 1,000 ML ONE (15:58)
--- NOTE | 2017-02-24 16:17 | Operative Report ---
Operative Report Operative Report: 02/24/17 Preoperative diagnosis: Right acquired breast deformity Status post necrotizing soft tissue infection of the right breast Status post split-thickness skin graft Postoperative diagnosis: Same Procedure: Right breast reconstruction, other technique Surgeon: Ric Villanueva M.D. Quality Assurance Monitor Chassis: Mahesh Mendoza CSA Description of procedure: The patient was brought into the operating room and placed on the table in a supine position. All initiation of general anesthesia right breast was prepped with a Betadine solution and draped in the usual sterile manner. #10 blade scalpel was used to incise Boles pattern preoperative skin markings with de- epithelialization of skin within these markings to include the STSG. Blood supply was based superior medially and centrally making cuts through breast tissue to facilitate repositioning of the nipple areolar complex. Closure was performed in layers using interrupted and running 2-0 Monocryl sutures followed by Mastisol, Steri-Strips and a sterile dressing. Patient tolerated procedure well and returned to recovery room in stable condition. Ric Villanueva M.D.
[2017-02-24] MEDS ORDERED: NORMODYNE IV PRN (16:45)
[2017-02-24 20:28] VITALS: BP 159/95
== END 2017-02-24 19:45 | disposition home or self-care (01) ==
LOC: OR 11:33
PROVIDERS: ATTEND Plastic Surgery
DX: N64.89 Other specified disorders of breast (principal); K21.9 Gastro-esophageal reflux disease without esophagitis; I10 Essential (primary) hypertension; E11.9 Type 2 diabetes mellitus without complications; Z98.890 Other specified postprocedural states; Z87.891 Personal history of nicotine dependence
CPT/HCPCS: 19318; 36415; 82962; 85027; J0690; J1100; J1170; J2250; J2370; J2405; J2704; J7030; J1815

== ENCOUNTER 2017-04-21 09:26 | Day surgery (SDC) | payer OTHER ==
[~2017-04-21 09:26] MED LIST changes: +ANCEF/STERILE WATER 2 GM/20 ML IV NR; -MORPHINE IV PRN; -NACL 0.9% IR ONE; -SODIUM CHLORIDE FLUSH SYRINGE 10 ML IV PRN; -VANCOMYCIN/NS 1 GM/250 ML 250 ML IV ONE
[2017-04-21] MEDS ORDERED: NACL BACTERIOSTATIC INFILTRATI ONE (11:22)
[2017-04-21] MEDS ORDERED: PERCOCET 5/325 PO PRN (11:34)
[2017-04-21] MEDS ORDERED: ZOFRAN IV PRN (11:34)
--- NOTE | 2017-04-21 11:34 | Anesthesia Consultation ---
Anesthesia Consult and Med Hx Date of service: 04/21/17 - Airway Anesthetic Teeth Evaluation: Good ROM Head & Neck: Adequate Mental/Hyoid Distance: Adequate Mallampati Class: Class II Intubation Access Assessment: Probably Good - Pulmonary Exam CTA: Yes - Cardiac Exam Cardiac Exam: RRR - Pulmonary Hx Smoking: Yes (STOPPED 11/2015) Hx Sleep Apnea: No ([place] PRE SCREEN LOW RISK) - Cardiovascular System Hx Hypertension: Yes (RECENT- NO MEDS, white coat htn) - Central Nervous System Hx Neuromuscular Disorder: No Hx Psychiatric Problems: No - Gastrointestinal Hx Gastroesophageal Reflux Disease: Yes (uncontrolled) - Endocrine Hx Insulin Dependent Diabetes: Yes (BG elevated today. Pt has been attempting diet control) - Other Systems Hx Alcohol Use: No Hx Substance Use: No Hx Cancer: No
--- NOTE | 2017-04-21 11:35 | Anesthesia Day of Surgery ---
Anesthesia Day of Surgery - Day of Surgery Patient Examined: Yes Patient H&P Reviewed: Yes Patient is NPO: Yes
[2017-04-21 11:43] LABS: Basophils % (Auto) 1.3 % (0.0-1.8); Eosinophils % (Auto) 5.4 % (0.0-4.3); Hemoglobin 12.5 gm/dl (10.1-14.3); Mean Corpuscular HGB Conc 34 % (30-34); Mean Corpuscular Hemoglobin 28 pg (28-32); Mean Corpuscular Volume 82 fl (79-97); Platelet Count 247 K/mm3 (140-440); Red Blood Count 4.51 M/mm3 (3.65-5.03); Red Cell Distribution Width 12.3 % (13.2-15.2); White Blood Count 7.5 K/mm3 (4.5-11.0)
[2017-04-21] MEDS ORDERED: NACL 0.9% 1000 ML 1,000 ML IV SCH (12:00)
[2017-04-21] MEDS ORDERED: LACTATED RINGERS 1,000 ML IV SCH (12:00)
[2017-04-21] MEDS ORDERED: PEPCID PO NR (12:00)
[2017-04-21] MEDS ORDERED: VERSED IV NR (12:00)
[2017-04-21] MEDS ORDERED: DILAUDID ONE (13:53)
[2017-04-21] MEDS ORDERED: XYLOCAINE MPF 2% ONE (13:53)
[2017-04-21] MEDS ORDERED: DIPRIVAN 10 MG/ML IV ONE (13:53)
[2017-04-21] MEDS ORDERED: ZOFRAN ONE (13:54)
[2017-04-21] MEDS ORDERED: DECADRON ONE (13:54)
[2017-04-21] MEDS ORDERED: NACL 0.9% IR ONE (14:42)
[2017-04-21] MEDS ORDERED: NACL 0.9% 1000 ML 1,000 ML ONE (14:55)
[2017-04-21] MEDS ORDERED: ePHEDrine SULFATE ONE (15:29)
[2017-04-21] MEDS ORDERED: LOPRESSOR IV ONE ×2 (16:57→17:02)
[2017-04-21] MEDS: DILAUDID IV PRN ×2 (17:00→17:20)
[2017-04-21 18:17] VITALS: BP 168/94
--- NOTE | 2017-04-21 18:38 | Post Anesthesia Evaluation ---
- Post Anesthesia Evaluation Patient Participated: Yes Airway Patent: Yes Stable Respiratory Function: Yes Temp > 96.8F: Yes Pain Manageable: Yes Adequeate Hydration: Yes Anesthesia Complications: No
--- NOTE | 2017-04-21 19:46 | Operative Report ---
SERVICE: Plastic Surgery. PREOPERATIVE DIAGNOSES: 1. Bilateral acquired breast deformity. 2. Left breast ptosis. 3. Status post right breast reconstruction, status post necrotizing soft tissue infection of the right breast. POSTOPERATIVE DIAGNOSES: 1. Bilateral acquired breast deformity. 2. Left breast ptosis. 3. Status post right breast reconstruction, status post necrotizing soft tissue infection of the right breast. PROCEDURE: Left breast reduction. SURGEON: Ric Villanueva MD MAILMASTER: Mahesh Mendoza CSA FINDINGS: 280 g removed from the left breast. DESCRIPTION OF PROCEDURE: The patient was brought to the operating room and placed on the table in supine position. Following administration of general anesthesia, the left breast was prepped with a Betadine solution, draped in usual sterile manner as was the right. A #10 blade scalpel was used to make a circumareolar skin incision followed by de-epithelization of an inferior dermal pedicle. Modified Boles-pattern skin markings were incised with a scalpel, deepened through subcutaneous fat and breast tissue using the electrocautery. Skin flaps were raised in standard manner as was fashioning of an inferior central mound pedicle. Breasts tissue was resected in order to achieve improved symmetry between the 2 breasts and sent to pathology as specimen. Hemostasis controlled using electrocautery. Closure was performed over 2-mm Vicente drains using interrupted and running subcuticular 2-0 Monocryl sutures. Mastisol, Steri-Strips, and sterile dressings applied. The patient tolerated the procedure well and returned to recovery room in stable condition. JOB# [id number] FTW/NTS
== END 2017-04-21 18:21 | disposition home or self-care (01) ==
LOC: OR 09:26
PROVIDERS: ATTEND Plastic Surgery
DX: N64.81 Ptosis of breast (principal); N64.89 Other specified disorders of breast; E11.9 Type 2 diabetes mellitus without complications; I10 Essential (primary) hypertension; K21.9 Gastro-esophageal reflux disease without esophagitis; Z87.891 Personal history of nicotine dependence
CPT/HCPCS: 19318; 36415; 82962; 84132; 85025; 88305; 88307; J0690; J1170; J2250; J2405; J2704; J7030; J1100; J1815

== ENCOUNTER 2019-04-12 00:41 | Emergency (ER) | payer SELFPAY ==
[2019-04-12 01:06] LABS: Basophils # (Auto) 0.1 K/mm3 (0.0-0.1); Basophils % (Auto) 0.7 % (0.0-1.8); Eosinophils % (Auto) 0.1 % (0.0-4.3); Hematocrit 41.1 % (30.3-42.9); Hemoglobin 14.3 gm/dl (10.1-14.3); Lymphocytes # (Auto) 2.5 K/mm3 (1.2-5.4); Lymphocytes % (Auto) 25.5 % (13.4-35.0); Mean Corpuscular HGB Conc 35 % (30-34); Mean Corpuscular Volume 82 fl (79-97); Monocytes # (Auto) 0.6 K/mm3 (0.0-0.8); Monocytes % (Auto) 6.1 % (0.0-7.3); Platelet Count 226 K/mm3 (140-440); Red Blood Count 5.03 M/mm3 (3.65-5.03); Red Cell Distribution Width 12.4 % (13.2-15.2)
[2019-04-12] MEDS ORDERED: PEPCID IV ONE (01:24)
[2019-04-12] MEDS ORDERED: MORPHINE IV ONE (01:24)
[2019-04-12] MEDS ORDERED: ZOFRAN IV ONE (01:24)
[2019-04-12] MEDS ORDERED: NORMODYNE IV ONE (01:27)
[2019-04-12 01:30] LABS: Albumin 4.1 g/dL (3.9-5); Calcium 9.5 mg/dL (8.4-10.2)
[2019-04-12] MEDS ORDERED: NACL 0.9% 1000 ML 1,000 ML IV ONE ×2 (01:58)
--- NOTE | 2019-04-12 02:47 | Cat Scan Report ---
CT ABDOMEN AND PELVIS WITH CONTRAST INDICATION: NV severe mid abd pain, severe hypertension. TECHNIQUE: Axial CT images were obtained through the abdomen and pelvis after 100 cc Omnipaque [address] scans at this location are performed using CT dose reduction for ALARA by means of automated exposure control. COMPARISON: None available. FINDINGS: LOWER CHEST: No significant abnormality. LIVER: Enlarged with moderate decreased attenuation characteristic for steatosis GALLBLADDER: No significant abnormality. BILE DUCTS: No significant abnormality. PANCREAS: No significant abnormality. SPLEEN: No significant abnormality. ADRENALS: No significant abnormality. RIGHT KIDNEY and URETER: No significant abnormality. LEFT KIDNEY and URETER: No significant abnormality. STOMACH and SMALL BOWEL: Small hiatal hernia. No significant abnormality. COLON: Mild colonic diverticulosis APPENDIX: Normal PERITONEUM: No free fluid. No free air. No fluid collection. LYMPH NODES: No significant adenopathy. AORTA and ARTERIES: No significant abnormality. IVC and VEINS: No significant abnormality. URINARY BLADDER: No significant abnormality. REPRODUCTIVE ORGANS: No significant abnormality. ADDITIONAL FINDINGS: None. SKELETAL SYSTEM: No significant abnormality. IMPRESSION: 1. Mild diverticulosis. 2. Moderate steatosis. 3. Small hiatal hernia Signer Name: Sami Sterling MD Signed: 04/12/2019 2:42 AM Workstation Name: [id number]
--- NOTE | 2019-04-12 04:28 | Emergency Department Report ---
ED General Adult HPI - General Chief complaint: Abdominal Pain Stated complaint: ABD PAIN/EMESIS Time Seen by Provider: 04/12/19 01:11 Source: patient Mode of arrival: Ambulatory Limitations: No Limitations - History of Present Illness Initial comments: Patient is a 53-year-old Female who presented with mid epigastric pain for the past 3 days. Patient has numerous episodes of nausea vomiting. Patient states the episode started with some mild diarrhea several days ago which then resolved and now she is vomiting. Patient denies cough cold congestion fevers or chills. Patient states the pain in the epigastrium is 8 out of 10 in severity as a burn ing sensation. patient is medically non compliant Severity scale (0 -10): 2 - Related Data Previous Rx's Medication Instructions Recorded Last Taken Type Amlodipine Besylate [Norvasc] 5 mg PO DAILY #30 tablet 04/12/19 Unknown Rx Ondansetron [Zofran Odt] 4 mg PO Q8HR #10 tab.rapdis 04/12/19 Unknown Rx Pantoprazole [Protonix] 40 mg PO QDAY #30 tablet 04/12/19 Unknown Rx metFORMIN [Glucophage] 500 mg PO BID #60 tablet 04/12/19 Unknown Rx Allergies Allergy/AdvReac Type Severity Reaction Status Date / Time No Known Allergies Allergy Verified 04/16/17 15:40 ED Review of Systems ROS: Stated complaint: ABD PAIN/EMESIS Other details as noted in HPI Comment: All other systems reviewed and negative ED Past Medical Hx - Past Medical History Previous Medical History?: Yes Hx Hypertension: (RECENT- NO MEDS, white coat htn) Hx Diabetes: Yes (NO MEDS AT PRESENT) Hx GERD: Yes Hx HIV: No Additional medical history: benign cyst/lump right breast - Surgical History Past Surgical History?: Yes Hx Breast Surgery: Yes (BREAST REDUCTION,I&D BREAST WITH SKIN GRAFT) Additional Surgical History: biopsy right breast cyst 2016 - Social History Smoking Status: Never Smoker Substance Use Type: None - Medications Home Medications: Home Medications Medication Instructions Recorded Confirmed Last Taken Type Amlodipine Besylate [Norvasc] 5 mg PO DAILY #30 tablet 04/12/19 Unknown Rx Ondansetron [Zofran Odt] 4 mg PO Q8HR #10 tab.rapdis 04/12/19 Unknown Rx Pantoprazole [Protonix] 40 mg PO QDAY #30 tablet 04/12/19 Unknown Rx metFORMIN [Glucophage] 500 mg PO BID #60 tablet 04/12/19 Unknown Rx ED Physical Exam - General Limitations: No Limitations General appearance: alert, in distress - Head Head exam: Present: atraumatic, normocephalic - Eye Eye exam: Present: normal appearance - ENT ENT exam: Present: mucous membranes moist - Neck Neck exam: Present: normal inspection - Respiratory Respiratory exam: Present: normal lung sounds bilaterally. Absent: respiratory distress, wheezes, rales, rhonchi - Cardiovascular Cardiovascular Exam: Present: regular rate, normal rhythm, normal heart sounds. Absent: systolic murmur, diastolic murmur, rubs, gallop - GI/Abdominal GI/Abdominal exam: Present: soft, tenderness (epigastric), normal bowel sounds. Absent: distended, guarding, rebound, rigid - Extremities Exam Extremities exam: Present: normal inspection - Back Exam Back exam: Present: normal inspection - Neurological Exam Neurological exam: Present: alert, oriented X3 - Psychiatric Psychiatric exam: Present: normal affect, normal mood - Skin Skin exam: Present: warm, dry, intact, normal color. Absent: rash ED Course Vital Signs 04/12/19 04/12/19 04/12/19 00:48 01:06 01:15 Temperature 98.3 F Pulse Rate 84 89 Respiratory 18 12 8 L Rate Blood Pressure 156/84 Blood Pressure 202/98 [Right] O2 Sat by Pulse 97 99 Oximetry 04/12/19 04/12/19 04/12/19 01:16 01:31 01:33 Temperature Pulse Rate 84 82 Respiratory 18 11 L 12 Rate Blood Pressure 156/84 156/84 Blood Pressure [Right] O2 Sat by Pulse 98 98 Oximetry 04/12/19 04/12/19 04/12/19 01:35 01:37 01:39 Temperature Pulse Rate 89 86 83 Respiratory 13 12 12 Rate Blood Pressure 156/84 156/84 177/72 Blood Pressure [Right] O2 Sat by Pulse 99 100 97 Oximetry 04/12/19 04/12/19 01:41 01:43 Temperature Pulse Rate 80 80 Respiratory 13 26 H Rate Blood Pressure 177/72 177/72 Blood Pressure [Right] O2 Sat by Pulse 98 100 Oximetry ED Medical Decision Making - Lab Data Result diagrams: 04/12/19 00:50 04/12/19 00:50 Lab Results 04/12/19 04/12/19 04/12/19 Range/Units 00:50 00:50 02:28 WBC 9.9 (4.5-11.0) K/mm3 RBC 5.03 (3.65-5.03) M/mm3 Hgb 14.3 (10.1-14.3) gm/dl Hct 41.1 (30.3-42.9) % MCV 82 (79-97) fl MCH 28 (28-32) pg MCHC 35 H (30-34) % RDW 12.4 L (13.2-15.2) % Plt Count 226 (140-440) K/mm3 Lymph % (Auto) 25.5 (13.4-35.0) % Hitchcock % (Auto) 6.1 (0.0-7.3) % Eos % (Auto) 0.1 (0.0-4.3) % Baso % (Auto) 0.7 (0.0-1.8) % Lymph # 2.5 (1.2-5.4) K/mm3 Hitchcock # 0.6 (0.0-0.8) K/mm3 Eos # 0.0 (0.0-0.4) K/mm3 Baso # 0.1 (0.0-0.1) K/mm3 Seg Neutrophils % 67.6 (40.0-70.0) % Seg Neutrophils # 6.7 (1.8-7.7) K/mm3 Sodium 131 L (137-145) mmol/L Potassium 4.2 (3.6-5.0) mmol/L Chloride 84.7 L (98-107) mmol/L Carbon Dioxide 26 (22-30) mmol/L Anion Gap 25 mmol/L BUN 31 H (7-17) mg/dL Creatinine 1.5 H (0.7-1.2) mg/dL Estimated GFR 44 ml/min BUN/Creatinine Ratio 21 % Glucose 421 H (65-100) mg/dL Calcium 9.5 (8.4-10.2) mg/dL Total Bilirubin 0.40 (0.1-1.2) mg/dL AST 24 (5-40) units/L ALT 44 (7-56) units/L Alkaline Phosphatase 102 (35-129) units/L Troponin T < 0.010 (0.00-0.029) ng/mL Total Protein 8.0 (6.3-8.2) g/dL Albumin 4.1 (3.9-5) g/dL Albumin/Globulin Ratio 1.1 % Lipase 26 (13-60) units/L - EKG Data -: EKG Interpreted by Me - EKG Data 04/12/19 04:30 Impression placed on a monitor showed normal sinus rhythm. - Radiology Data [facility] [address] [place] [address] Cat Scan Report Signed Patient: CINTIA LUIS MR#: [id number] : 1965 Acct:[id number] Age/Sex: 53 / F ADM Date: 04/12/19 Loc: ED Attending Dr: Ordering Physician: JULEE BAR MD Date of Service: 04/12/19 Procedure(s): CT abdomen pelvis w con Accession Number(s): [id number] cc: JULEE BAR MD CT ABDOMEN AND PELVIS WITH CONTRAST INDICATION: NV severe mid abd pain, severe hypertension. TECHNIQUE: Axial CT images were obtained through the abdomen and pelvis after 100 cc Omnipaque [address] scans at this location are performed using CT dose reduction for ALARA by means of automated exposure control. COMPARISON: None available. FINDINGS: LOWER CHEST: No significant abnormality. LIVER: Enlarged with moderate decreased attenuation characteristic for steatosis GALLBLADDER: No significant abnormality. BILE DUCTS: No significant abnormality. PANCREAS: No significant abnormality. SPLEEN: No significant abnormality. ADRENALS: No significant abnormality. RIGHT KIDNEY and URETER: No significant abnormality. LEFT KIDNEY and URETER: No significant abnormality. STOMACH and SMALL BOWEL: Small hiatal hernia. No significant abnormality. COLON: Mild colonic diverticulosis APPENDIX: Normal PERITONEUM: No free fluid. No free air. No fluid collection. LYMPH NODES: No significant adenopathy. AORTA and ARTERIES: No significant abnormality. IVC and VEINS: No significant abnormality. URINARY BLADDER: No significant abnormality. REPRODUCTIVE ORGANS: No significant abnormality. ADDITIONAL FINDINGS: None. SKELETAL SYSTEM: No significant abnormality. IMPRESSION: 1. Mild diverticulosis. 2. Moderate steatosis. 3. Small hiatal hernia Signer Name: Sami Sterling MD Signed: 04/12/2019 2:42 AM Workstation Name: [id number] Transcribed By: TL Dictated By: Sami Sterling MD Electronically Authenticated By: Sami Sterling MD Signed Date/Time: 04/12/19241 DD/ 8 TD/TT: - Medical Decision Making Patient is a 53-year-old black female presented with some mid abdominal pain. The patient was noted to have a very elevated blood pressure on arrival. Patient was given labetalol did improve. Troponin was negative the patient showed no abnormality on a cardiac tracing. Patient also does have some epigastric discomfort. Patient's blood sugar was very elevated. Patient did not have evidence of being in DKA. Patient likely with some mild gastroparesis. This coupled with the hiatal hernia seen on CT likely is why the patient's pain was at the height is today. Patient's nausea is improved. Patient was hydrated here in the emergency department. Patient will be discharged home with primary care and GI follow-up and medications for symptomatic relief as well as medications for her blood pressure and diabetes. Critical care attestation.: If time is entered above; I have spent that time in minutes in the direct care of this critically ill patient, excluding procedure time. ED Disposition Clinical Impression: Hypertensive urgency, Gastroparesis, Hiatal hernia, Dehydration Disposition: DC-01 TO HOME OR SELFCARE Is pt being admited?: No Does the pt Need Aspirin: No Condition: Stable Instructions: Abdominal Pain (ED) Referrals: RAH MEDINA MD [Primary Care Provider] - 3-5 Days Time of Disposition: 04:36
[2019-04-12 05:43] VITALS: BP 136/84
== END 2019-04-12 05:44 | disposition home or self-care (01) ==
LOC: ED 00:41
DX: E11.43 Type 2 diabetes mellitus with diabetic autonomic (poly)neuropathy (principal); K31.84 Gastroparesis; E86.0 Dehydration; K44.9 Diaphragmatic hernia without obstruction or gangrene; I10 Essential (primary) hypertension; Z98.890 Other specified postprocedural states; Z79.84 Long term (current) use of oral hypoglycemic drugs
CPT/HCPCS: 36415; 74177; 80053; 83690; 84484; 85025; 96361; 96374; 96375; 99284; J2270; J2405; J7030; Q9967